=== PATIENT | male | born 1970 | race Caucasian/White ===

== ENCOUNTER → 2022-04-30 | Outpatient (CLI) | payer SELFPAY ==
[2022-04-30 12:46] LABS: Absolute Neutrophil Count 4.8 X10^3/uL (2.0-7.7); Basophil# 0.07 X10^3/uL; Eosinophil# 0.27 X10^3/uL; Eosinophils% 3.8 % (0-5); Hematocrit 38.2 % (40-54); Hemoglobin 13.1 g/dL (13.0-16.5); Lymphocyte % 20.9 % (19-41); Mean Corp Hgb Conc 34.3 g/dL (32-36); Mean Corpuscular Hgb 29.4 pg (27.0-32.0); Mean Corpuscular Volume 85.8 fL (80-94); Mean Platelet Vol. 9.1 fl (6.2-12.0); Monocyte# 0.45 X10^3/uL; Monocyte% 6.3 % (0-10); NRBC Flagged by Analyzer 0 % (0-5); Neutrophil # 4.83 X10^3/uL (2.7-7.7); Neutrophil % 67.3 % (47-70); Platelet Count 366 K/mm3 (150-450); RBC Distribution Width CV 12.9 % (11.6-14.6); RBC Distribution Width SD 39.8 fl (35.1-43.9); Red Blood Count 4.45 M/mm3 (4.6-6.2); White Blood Count 7.2 K/mm3 (4.4-11.0)
[2022-04-30 12:51] LABS: Anion Gap 3 (5-15); BUN 15 mg/dL (7-18); BUN/Creat Ratio 14.4 RATIO (10-20); Calcium,Total 9.2 mg/dL (8.5-10.1); Chloride 102 mmol/L (98-107); Creatinine, Serum 1.04 mg/dL (0.70-1.30); EST Glomerular Filtration Rate 81 mL/min (>60); Est Glom Filt Rate - Afr Amer 97 mL/min (>60); Glucose 83 mg/dL (74-106); Potassium 4.1 mmol/L (3.5-5.1); Sodium Level 138 mmol/L (136-145); T4 Free Direct 0.96 ng/dL (0.76-1.46); Thyroid Stim Hormone (TSH) 6.56 uIU/mL (0.358-3.74)
== END | disposition home or self-care (01) ==
PROVIDERS: PCP Family Medicine; Visit Provider Family Medicine
DX: R50.9 Fever, unspecified (principal); N17.9 Acute kidney failure, unspecified; R53.83 Other fatigue
CPT/HCPCS: 36415; 80048; 84439; 84443; 85025

== ENCOUNTER 2023-10-01 21:07 | Emergency (ER) | payer OTHER, SELFPAY ==
[2023-10-01 21:07] VITALS: BP 136/70; PULSE 87; RESP 16; TEMP 37.1; O2SAT 94
[2023-10-01 21:10] VITALS: BP 136/70; PULSE 93; RESP 16; TEMP 37.1; O2SAT 100
--- NOTE | 2023-10-01 21:24 | CT_ITS ---
STUDY: CT ABDOMEN AND PELVIS WITHOUT CONTRAST REASON FOR EXAM: Male, 52 years old. pain RADIATION DOSAGE (If Supplied By Facility): CTDIvol = ( 8.45 ) mGy, DLP = ( 681.05 ) mGycm TECHNIQUE: Transaxial images were obtained from the dome of the diaphragm to the symphysis pubis without oral contrast, and without intravenous contrast. Sagittal and coronal images were reconstructed. Individualized dose optimization techniques were used for this CT. COMPARISON: 10/20/2014 FINDINGS: Groundglass density left lower lobe consistent with subsegmental atelectasis or pneumonitis. The visualized portions of the heart are within normal limits. Elevated left hemidiaphragm. Normal liver. The gallbladder is contracted. Normal spleen. Normal pancreas. Normal bilateral adrenal glands. Normal right kidney. Stranding of the fat surrounding the left kidney without hydronephrosis suggestive of pyelonephritis. Normal visualized stomach. Normal small intestine. Large amount of stool throughout the colon suggestive of constipation. Large amount of stool within the rectum suggestive of fecal impaction. The appendix is visualized and appears normal. Normal abdominal aorta. Normal inferior vena cava. Small retroperitoneal lymph nodes, likely reactive. Normal urinary bladder. Bilateral hydroceles. Normal abdominal wall. 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 No anterolisthesis of L5 on S1 due to spondylolisthesis. CT/Abdomen/Pelvis without Cont IMPRESSION: 1. Suspect left pyelonephritis. 2. Suspect constipation with fecal impaction. 3. Bilateral hydroceles. 4. Left lower lobe subsegmental atelectasis or pneumonitis. Electronically Signed: Darrell Hernandez MD at 22:32 EDT ,
--- NOTE | 2023-10-01 21:27 | EX.ED.DYSGE1 ---
HPI History of Present Illness Chief Complaint: Fever Informant: family Narrative Narrative: Patient here with 2 brothers, developmental disability nonverbal. Reporting patient had a fever this morning. Slight cough today. Denies sick contacts. He says history of UTIs. They state he cannot urinate recently. He has been vomiting x 2 today. Reported he had twisted bowels x 2. Reported knee surgery 1 time another time self-limiting. They been using Advil however last time was 4 PM nearly 6 hours ago. He has no allergies. Prior similar symptoms: Yes PFSH PFSH Medical History (Updated 10/01/23 @ 23:[address] Javi Chaves DO) Developmental disability Constipation Right inguinal hernia Home Medications ?Medication ?Instructions ?Recorded ?Last Taken ?Type cefdinir 300 mg capsule 300 mg PO Q12H #14 caps 10/01/23 Unknown Rx ondansetron 4 mg disintegrating 4 mg PO Q8H PRN PRN Nausea #10 tabs 10/01/23 Unknown Rx tablet thyroid (pork) 60 mg tablet 60 mg PO DAILY 10/01/23 Unknown History ([place] Thyroid) Allergy/AdvReac Type Severity Reaction Status Date / Time No Known Allergies Allergy Verified 10/01/23 22:11 Family History Grandmother Asthma Grandfather Colon cancer Brother Diabetes Father Hypertension Sister Thyroid disorder lupusautoimmune disease Social History Smoking Status: Never smoker alcohol intake: never substance use type: does not use ROS ROS ED ROS Narrative Unable to answer due to his developmental delay. Per family fever and vomiting. Constitutional Constitutional ED: Reports fever(s) Gastrointestinal Gastrointestinal: Reports vomiting EXAM Physical Exam Const Vital Signs: 10/01/23 21:07 10/01/23 21:10 Temperature 98.8 F 98.8 F Temperature Source Temporal Temporal Pulse Rate 87 93 Respiratory Rate 16 16 Blood Pressure 136/70 H 136/70 H Blood Pressure Mean 92 92 Pulse Ox 94 100 Oxygen Delivery Method Room Air Room Air Positive well nourished and well developed Constitutional Narrative: Nonverbal, nontoxic, however patient up out of bed trying to leave the room with brothers helping stabilize the patient and calm him down. General Appearance ED: well developed and NAD HEENT Reports moist mucous membranes normocephalic and atraumatic Eyes General Eye ED: Yes normal appearance of both eyes Neck General: Negative for tenderness Chest Wall Chest: Negative for tenderness Resp normal respiratory effort and normal air movement Effort and Inspection: symmetric chest movement; Negative for respiratory distress Cardio regular rate, regular rhythm and no murmurs Peripheral Pulses: pulses 2+ throughout GI normal to inspection, nondistended, normoactive bowel sounds GI Narrative: No suprapubic distention, no guarding or rebound. Palpation: Negative for guarding or rebound tenderness present Extremity normal to inspection General Extremety ED: Negative for edema or tenderness General Extremity: Negative for edema Neuro Sensorium / Orientation: awake Skin no rashes or lesions noted and no wounds MDM MDM MDM Narrative Medical decision making narrative: Interventions / MDM: Differential diagnosis: UTI, pneumonia, Diagnosis considered but do not suspect: Volvulus however CT negative for this. My EKG interpretation: N/A Imaging independently reviewed and interpreted by myself: CT abdomen pelvis: Stranding around his left kidney concerning pyelonephritis no volvulus. Constipation noted. Chest x-ray: Bilateral patchy pneumonia also read by radiology. External documents reviewed: N/A Test considered but not ordered:N/A ED course: Patient afebrile on arrival he was given Advil nearly 6 hours ago. History UTIs history of reported twisted bowels. He was vomiting today. He is nontoxic. However with patient's baseline development disability unable to safely perform medical treatment. Discussed with the brothers will likely need sedation and they agree. Ketamine will be ordered to assist with stability. Will plan on labs straight catheter urine along with CT abdomen pelvis for further evaluation. Will be given fluids and Zofran. Patient was workup positive for UTI urine culture sent start Rocephin. Chest x-ray also noted patchy pneumonia. COVID is positive. He is not hypoxic. White count 12.4. His renal sufficiency creatinine 1.5 up from 1. He is given IV fluids in the ED. CT abdomen pelvis negative for volvulus notes stranding around the left kidney. He is covered for complicated UTI. Discussed with family in the room. Vitals are stable. They will take and finish antibiotics. Prescription for Zofran. Return precautions. All questions were answered. Re-evaluation: stable Disposition discussed with patient/family/significant other: Family Case discussed with consulting clinician: N/A This note was generated with [employer] dictation software. It may contain incorrect words, spelling, and punctuation that were not noted in checking the note before signing. Lab Data Attestation: I reviewed the patient's lab results. Labs: Laboratory Results - last 24 hr 10/01/23 10/01/23 21:50 22:05 WBC 12.4 H RBC 4.83 Hgb 13.7 Hct 40.4 MCV 83.6 MCH 28.4 MCHC 33.9 RDW Std Deviation 40.4 RDW Coeff of Monika 13.2 Plt Count 139 L MPV 9.3 Immature Gran % (Auto) 0.200 Neut % (Auto) 81.3 H Lymph % (Auto) 13.9 L [place] % (Auto) 3.9 Eos % (Auto) 0.5 Baso % (Auto) 0.2 Absolute Neuts (auto) 10.1 H Absolute Lymphs (auto) 1.73 Nucleated RBC % 0 Sodium 136 Potassium 3.6 Chloride 104 Carbon Dioxide 21.0 Anion Gap 11 BUN 23 H Creatinine 1.55 H Est GFR (MDRD) Af Amer 61 Est GFR (MDRD) Non-Af 51 L BUN/Creatinine Ratio 14.8 Glucose 114 H Calcium 8.8 Urine Color Yellow Urine Clarity Cloudy Urine pH 5.0 Ur Specific [place] 1.015 Urine Protein 100 H Urine Glucose (UA) Normal Urine Ketones 5 H Urine Occult Blood 50 H Urine Nitrite Positive H Urine Bilirubin Negative Urine Urobilinogen Normal Ur Leukocyte Esterase 500 H Urine RBC 5-10 SEEN Urine WBC 50-100 SEEN Ur Squamous Epith Cells 0-5 SEEN Amorphous Sediment 1+ URATE Urine Bacteria RARE Urine Mucus 0 SEEN Radiography Diagnostic Testing: Clinical Impression(s) from Imaging Studies Abdomen/Pelvis CT 10/01/23 21:24 IMPRESSION: 1. Suspect left pyelonephritis. 2. Suspect constipation with fecal impaction. 3. Bilateral hydroceles. 4. Left lower lobe subsegmental atelectasis or pneumonitis. Electronically Signed: Darrell Hernandez MD at 22:32 EDT , Chest X-Ray 10/01/23 22:04 IMPRESSION: Patchy bilateral pneumonia. Electronically Signed: Darrell Hernandez MD at 22:32 EDT , Discharge Plan Triage Chief Complaint: Fever ED Provider: Javi Chaves Dx/Rx/DC Orders Clinical Impression: Complicated urinary tract infection, Acute renal insufficiency, COVID-19, Developmental disability, Pneumonia due to 2019-nCoV Instructions: Coronavirus Disease 2019 (COVID-19): Overview, Urinary Tract Infections in Men, ED Pneumonia (Adult) Prescriptions: New ondansetron 4 mg tablet,disintegrating 4 mg PO Q8H PRN PRN (Reason: Nausea) Qty: 10 0RF cefdinir 300 mg capsule 300 mg PO Q12H Qty: 14 0RF No Action thyroid (pork) [[place] Thyroid] 60 mg tablet 60 mg PO DAILY Primary Care Provider: Олег Wen Referrals: Олег Wen, [Primary Care Provider] - 3-5 Days Activity Restrictions/Additional Instructions: CT scan no volvulus or obstruction. Some inflammation around the left kidney. Urine with infection. White count of 12.4. Creatinine 1.55. Status post IV fluids. Avoid Advil. Use Tylenol 1 g every 6 hours as needed for fevers. Take and finish antibiotics as prescribed. Zofran as needed for nausea and vomiting. COVID-19 positive today. Pneumonia seen on chest x-ray. He is not requiring oxygen. Follow-up with your doctor for recheck blood work. If symptoms worsen, return to the ED for reevaluation. Print Language: Guamanian Disposition Disposition: Home, Self Care
[2023-10-01] MEDS: Ketamine HCl 500 MG/5 ML Vial 283 MG IM (21:36)
[2023-10-01] MEDS: 0.9% Normal Saline (1000mL) 1,000 ML 150 ML IV (21:53)
[2023-10-01 21:59] LABS: Absolute Lymphocyte Count 1.73 X10^3/uL (0.83-4.51); Absolute Neutrophil Count 10.1 X10^3/uL (2.0-7.7); Basophil# 0.03 X10^3/uL; Basophil% 0.2 % (0-1); Eosinophil# 0.06 X10^3/uL; Eosinophils% 0.5 % (0-5); Hematocrit 40.4 % (40-54); Hemoglobin 13.7 g/dL (13.0-16.5); Lymphocyte # 1.73 X10^3/ul (0.83-4.51); Lymphocyte % 13.9 % (19-41); Mean Corp Hgb Conc 33.9 g/dL (32-36); Mean Corpuscular Hgb 28.4 pg (27.0-32.0); Mean Corpuscular Volume 83.6 fL (80-94); Mean Platelet Vol. 9.3 fl (6.2-12.0); Monocyte# 0.49 X10^3/uL; Monocyte% 3.9 % (0-10); NRBC Flagged by Analyzer 0 % (0-5); Neutrophil # 10.08 X10^3/uL (2.7-7.7); Neutrophil % 81.3 % (47-70); Platelet Count 139 K/mm3 (150-450); RBC Distribution Width CV 13.2 % (11.6-14.6); RBC Distribution Width SD 40.4 fl (35.1-43.9); Red Blood Count 4.83 M/mm3 (4.6-6.2); White Blood Count 12.4 K/mm3 (4.4-11.0)
--- NOTE | 2023-10-01 22:04 | RAD_ITS ---
STUDY: X-RAY CHEST REASON FOR EXAM: Male, 52 years old. cough TECHNIQUE: Single AP portable view of the chest. COMPARISON: None. FINDINGS: Patchy alveolar opacities in the upper right lung and the lower left lung consistent with pneumonia. Slightly elevated left hemidiaphragm. Normal size heart. Normal mediastinum and yusra. Normal visualized pulmonary arteries. Normal visualized aortic arch and descending thoracic aorta. Normal visualized thoracic spine. Normal visualized ribs, clavicles, and shoulders. There is no demonstrated abnormality of the visualized soft tissue structures of the upper abdomen. RAD/Chest 1 View (Portable) IMPRESSION: Patchy bilateral pneumonia. Electronically Signed: Darrell Hernandez MD at 22:32 EDT ,
[2023-10-01 22:10] LABS: Mucous, Urine 0 SEEN /hpf (<or=2+)
[2023-10-01 22:11] LABS: Color, Urine Yellow (Yellow); Glucose, Dipstick Normal (Normal); Ketone-Dipstick 5 mg/dl (Negative); Leukocyte Esterase-Dipstick 500 /ul (Negative); Nitrite-Dipstick Positive (Negative); Occult Blood-Urine 50 /ul (Negative); Protein-Dipstick 100 mg/dl (Negative); Specific Gravity, Urine 1.015 (1.002-1.030); Urine Bilirubin Dipstick Negative (Negative); Urine Clarity Cloudy (Clear); Urine Urobilinogen Normal (Normal)
[2023-10-01 22:14] LABS: Anion Gap 11 (5-15); BUN 23 mg/dL (7-18); BUN/Creat Ratio 14.8 RATIO (10-20); Calcium,Total 8.8 mg/dL (8.5-10.1); Chloride 104 mmol/L (98-107); Creatinine, Serum 1.55 mg/dL (0.70-1.30); EST Glomerular Filtration Rate 51 mL/min (>60); Est Glom Filt Rate - Afr Amer 61 mL/min (>60); Glucose 114 mg/dL (74-106); Potassium 3.6 mmol/L (3.5-5.1); Sodium Level 136 mmol/L (136-145)
[2023-10-01] MEDS: Ondansetron 4 MG/2 ML Vial IV (22:14)
[2023-10-01 22:20] LABS: Amorphous Sediment 1+ URATE; Bacteria RARE /hpf (None Seen); Red Blood Cells-Urine 5-10 SEEN /hpf (0-5); Squamous Epithelial Cells - UA 0-5 SEEN /hpf (0-5); White Blood Cells 50-100 SEEN /hpf (0-5)
[2023-10-01] MEDS: Ceftriaxone 1 GM/50 ML BAG IV (23:02)
[2023-10-01 23:38] VITALS: BP 147/71; PULSE 90; RESP 18; RESP 19; TEMP 36.8; O2SAT 97
== END 2023-10-01 23:41 | disposition home or self-care (01) ==
PROVIDERS: Emergency Provider Emergency Medicine; PCP Family Medicine; Visit Provider Emergency Medicine
DX: U07.1 COVID-19 (principal); N39.0 Urinary tract infection, site not specified; R11.10 Vomiting, unspecified; K59.00 Constipation, unspecified; N28.9 Disorder of kidney and ureter, unspecified; J12.82 Pneumonia due to coronavirus disease 2019; Z79.899 Other long term (current) drug therapy
CPT/HCPCS: 71045; 74176; 80048; 81001; 85025; 87077; 87086; 87088; 87186; 87631; 96361; 96365; 96372; 96375; 99284; J7030; P9612; J2405

== ENCOUNTER 2023-10-02 23:41 | Emergency (ER) | payer OTHER, SELFPAY ==
--- NOTE | 2023-10-02 00:01 | RAD_ITS ---
EXAM: XR ABDOMEN, 2 VIEWS AND XR CHEST, 1 VIEW CLINICAL INDICATION: constipation TECHNIQUE: Frontal view of the chest, frontal view of the abdomen/pelvis and upright or decubitus view of the abdomen. COMPARISON: Single view chest 10/01/2023 FINDINGS: CHEST: LUNGS AND PLEURAL SPACES: Patchy bibasilar air space disease. No pneumothorax. No effusion. HEART: Unremarkable. Cardiac silhouette not enlarged. MEDIASTINUM: Central airways and mediastinal contour are unremarkable. ABDOMEN: INTRAPERITONEAL SPACE: No free air. GASTROINTESTINAL TRACT: Moderate amount of stool in the colon. Non-obstructive. No bowel or stomach distention. ORGANS: Unremarkable as visualized. No organomegaly. No abnormal calcifications. TUBES, LINES AND DEVICES: None. BONES/JOINTS: No acute findings. SOFT TISSUES: No acute findings. RAD/Acute Abd Inc Chest (Portable) IMPRESSION: 1. Patchy bibasilar air space disease. Findings may indicate pneumonia. 2. Moderate amount of stool in the colon. Electronically Signed: Herson Monroe MD at 0:51 EDT ,
[2023-10-02 23:41] VITALS: BP 107/54; PULSE 86; RESP 14; TEMP 36.8; O2SAT 93; BMI 11.6
[2023-10-02 23:50] VITALS: BP 107/54; PULSE 83; RESP 16; TEMP 36.8; O2SAT 92
[2023-10-02 23:57] VITALS: RESP 20; O2SAT 93
[2023-10-03] VITALS (7 sets, daily range): BP systolic 91–97; BP diastolic 54–63; PULSE 67–72; RESP 16–22; TEMP 36–36.5; O2SAT 85–98
[2023-10-03 00:24] LABS: Hematocrit 35.1 % (40-54); Hemoglobin 11.6 g/dL (13.0-16.5); Mean Corpuscular Volume 84.6 fL (80-94); Mean Platelet Vol. 10.1 fl (6.2-12.0); POSITIVE COUNT YES; POSITIVE MORPHOLOGY YES; Platelet Count 140 K/mm3 (150-450); RBC Distribution Width CV 13.5 % (11.6-14.6); RBC Distribution Width SD 41.7 fl (35.1-43.9); Red Blood Count 4.15 M/mm3 (4.6-6.2); White Blood Count 7.3 K/mm3 (4.4-11.0)
[2023-10-03 00:28] LABS: Differential Indicated MANUAL DIFF
[2023-10-03 00:31] LABS: Lactic Acid 1.1 mmol/L (0.4-1.9)
[2023-10-03 00:35] LABS: ALB/GLOB Ratio 0.7 RATIO (0.9-2.4); AST(SGOT) 32 U/L (15-37); Alanine Aminotransfer ALT/SGPT 27 U/L (16-61); Albumin, Serum 2.7 g/dL (3.2-5.0); Alkaline Phosphatase 90 U/L (45-117); Anion Gap 8 (5-15); BUN 37 mg/dL (7-18); Calcium,Total 8.4 mg/dL (8.5-10.1); Chloride 107 mmol/L (98-107); Creatinine, Serum 2.06 mg/dL (0.70-1.30); EST Glomerular Filtration Rate 36 mL/min (>60); Est Glom Filt Rate - Afr Amer 44 mL/min (>60); Estimated Creatinine Clearance 21.72 ml/min; Glucose 137 mg/dL (74-106); Potassium 3.6 mmol/L (3.5-5.1); Protein, Total 6.7 g/dL (6.4-8.2); Sodium Level 142 mmol/L (136-145)
[2023-10-03] MEDS: 0.9% Normal Saline (1000mL) 1,000 ML 50 ML IV (00:41)
--- NOTE | 2023-10-03 01:03 | CT_ITS ---
EXAM: CT ABDOMEN AND PELVIS WITHOUT INTRAVENOUS CONTRAST CLINICAL INDICATION: abd pain TECHNIQUE: Helically acquired images were obtained of the abdomen and pelvis without intravenous contrast. This CT exam was performed using one or more of the following dose reduction techniques: automated exposure control, adjustment of the mA and/or kV according to patient size, and/or use of iterative reconstruction technique. CONTRAST: Oral Gastrografin RADIATION DOSE: CTDIvol = 10.09 mGy, DLP = 600.27 mGy-cm COMPARISON: CT abdomen and pelvis 10/01/2023 FINDINGS: LOWER THORAX: Bibasilar airspace disease. No cardiomegaly. No significant pericardial effusion. ABDOMEN: LIVER: Unremarkable. Homogeneous. GALLBLADDER AND BILE DUCTS: Unremarkable. No calcified gallstones. No gallbladder distention or wall edema. No intra- or extrahepatic biliary ductal dilation. PANCREAS: Unremarkable. No focal cystic mass. SPLEEN: Unremarkable. Normal size without focal cystic or solid mass. ADRENALS: Unremarkable. No nodules. KIDNEYS AND URETERS: Prominence of the left kidney with some adjacent stranding. Normal renal size and position. STOMACH AND BOWEL: Large amount stool in the colon, including the rectum which is dilated up to 8.6 cm. No focal inflammatory change. PELVIS: APPENDIX: No evidence of acute appendicitis. BLADDER: Unremarkable. REPRODUCTIVE: Bilateral hydroceles and scrotum. ABDOMEN and PELVIS: INTRAPERITONEAL SPACE: Unremarkable. No ascites or other fluid collection. No free air. BONES/JOINTS: Unremarkable. No suspicious lytic or blastic abnormality. SOFT TISSUES: Unremarkable. No discrete abdominal or pelvic wall hernia. VASCULATURE: Unremarkable. Abdominal aorta is non-dilated. LYMPH NODES: Unremarkable. No enlarged lymph nodes. CT/Abdomen/Pel W ORAL Cont Only IMPRESSION: 1. Bibasilar airspace disease. This may indicate atelectasis or infection. 2. Prominence of the left kidney with some adjacent stranding. Findings may indicate hilar nephritis as previously discussed. 3. Large amount stool in the colon, including the rectum which is dilated up to 8.6 cm. Overall, no significant interval change compared with the CT from 2 days ago. Electronically Signed: Herson Monroe MD at 3:35 EDT ,
[2023-10-03 01:33] LABS: Atypical Lymphocyte RARE %; Differential Comment SCANNED; Lymphocyte 11 % (19-41); Monocyte 6 % (0-10); Neutrophil-Band 36 % (0-5); Neutrophil-Segmented 47 % (47-70); Total Cells Counted 100 (MANUAL DIFF)
[2023-10-03 01:35] LABS: Absolute Neutrophil Count 6.1 X10^3/uL (2.0-7.7)
[2023-10-03 01:41] LABS: Blood Gas Specimen Type VEN; O2 Delivery Device Not entered; SITE Not entered; VBG BASE EXCESS 4 mmol/L (-1.0-3.5); VBG Bicarbonate 28 mmol/L (22-26); VBG PO2 61 mmHg (25-40); VBG SO2 92 % (50-70); VBG TCO2 29 mmol/L (23-33); VBG pCO2 41.2 mmHg (41-51); VBG pH 7.44 (7.32-7.42)
--- NOTE | 2023-10-03 03:46 | EX.ED.DYSGE1 ---
HPI History of Present Illness Chief Complaint: Nausea/Vomiting Informant: patient and family Narrative Narrative: Patient is a 52-year-old male with past medical history of developmental disability who was seen yesterday secondary to fever and found to have COVID-pneumonia as well as UTI. Family states that he also has a history of intestinal volvulus and that today he has been having bouts of vomiting after taking his medications and they have concern that this may have developed. They deny any fever since yesterday but have concern that as he is having bouts of nausea and vomiting that he is not getting his medication that he needs and therefore he was brought back in for evaluation [facility] Medical History (Updated 10/03/23 @ 06:[address] Grupo Thakur DO) Developmental disability Constipation Right inguinal hernia Home Medications ?Medication ?Instructions ?Recorded ?Last Taken ?Type cefdinir 300 mg capsule 300 mg PO Q12H #14 caps 10/01/23 Unknown Rx ondansetron 4 mg disintegrating 4 mg PO Q8H PRN PRN Nausea #10 tabs 10/01/23 Unknown Rx tablet thyroid (pork) 60 mg tablet 60 mg PO DAILY 10/01/23 Unknown History ([place] Thyroid) polyethylene glycol 3350 17 17 g PO BID #510 grams 10/03/23 Unknown Rx gram/dose oral powder (Miralax) Allergy/AdvReac Type Severity Reaction Status Date / Time No Known Allergies Allergy Verified 10/02/23 23:49 Family History Grandmother Asthma Grandfather Colon cancer Brother Diabetes Father Hypertension Sister Thyroid disorder lupusautoimmune disease Social History Smoking Status: Never smoker alcohol intake: never substance use type: does not use ROS ROS ED Constitutional Constitutional ED: Reports chills and fever(s) ENT ENT ED: Denies sore throat Cardiovascular Cardiovascular: Denies chest pain Respiratory/Chest Respiratory/Chest: Reports cough and dyspnea Gastrointestinal Gastrointestinal: Reports nausea and vomiting; Denies abdominal pain or diarrhea Genitourinary Genitourinary ED: Reports dysuria Musculoskeletal Musculoskeletal: Reports myalgias Integumentary Denies rash Neurologic Neurologic: Denies headache(s) Hematologic/Lymphatic Hematologic/Lymphatic: Denies easy bleeding or easy bruising EXAM Physical Exam Const Vital Signs: 10/03/23 03:00 10/03/23 04:00 10/03/23 04:00 Temperature 97.2 F L 96.8 F L Temperature Source Temporal Temporal Pulse Rate 71 70 72 Respiratory Rate 22 H 16 16 Blood Pressure 95/55 L 97/54 L 97/54 L Blood Pressure Mean 68 68 68 Pulse Ox 95 94 96 Oxygen Delivery Method Room Air Room Air Room Air 10/03/23 04:04 Temperature 96.8 F L Temperature Source Pulse Rate 70 Respiratory Rate 16 Blood Pressure 97/54 L Blood Pressure Mean 68 Pulse Ox 96 Oxygen Delivery Method Positive well nourished and well developed General Appearance ED: well developed; Negative for pallor HEENT Reports dry mucous membranes HEENT Narrative: Mucous membranes are dry and tacky without lip swelling oral lesions airway edema or compromise Mouth ED: Yes dry mucous membranes Mouth: dry mucous membranes Eyes PERRL and EOMs intact bilaterally General Eye ED: Negative for scleral icterus Neck supple Neck Narrative: No nuchal rigidity or meningeal signs Chest Wall palpation of chest normal Resp normal respiratory effort Resp Narrative: Breath sounds are diminished throughout with faint rhonchi in the bilateral bases Otherwise no nasal flaring retractions tachypnea or accessory muscle use Cardio regular rate and regular rhythm Rate: other Other Details: Heart is regular rate and rhythm without murmurs rubs or gallops Radial and carotid pulses are equal and symmetric GI GI Narrative: Abdomen is soft with slight distention and hyperactive bowel sounds Mild diffuse pain on palpation is noted however no voluntary guarding or rigidity or peritoneal signs No pulsatile mass or fluid wave Auscultation: hyperactive bowel sounds Palpation: soft Back/Spine no CVA tenderness Extremity normal to inspection Neuro CN's II-XII intact bilaterally Neuro Narrative: Patient is at his baseline mental status with no focal neurologic deficit No nuchal rigidity or meningeal signs Sensorium / Orientation: alert Psych Psych Narrative: Patient has a flat affect Skin no rashes or lesions noted Skin Narrative: Skin turgor is increased General Skin Exam: Negative for jaundice or pallor MDM MDM MDM Narrative Medical decision making narrative: Patient arrived to the ER afebrile in no acute distress. He was seen yesterday and had chest x-ray and CT scan of his abdomen. Family states that he does have a past medical history of volvulus and that he has been throwing up today after taking his antibiotic and there was concern that this was related to his previous history of volvulus. Differential diagnosis is potential small bowel obstruction/volvulus versus viral stomach infection such as [place] virus or rotavirus versus adverse medication effect. He has findings consistent with dehydration and there is concern for acute kidney injury versus electrolyte abnormality. Repeat labs were obtained as well as CT scan with oral contrast. Labs show improvement of his white blood cell count and no lactic acidosis. He does have bandemia but he has a known urinary tract infection as well as COVID induced pneumonia. Kidney function has increased by 0.5 from his value yesterday but this is not a significant enough elevation to classify as acute kidney injury and he will be treated with 2 L of IV fluid. CT scan with oral contrast was obtained secondary to concern there is reported vomiting was from volvulus that had developed during the day. CT scan did not show any signs of obstruction/volvulus. Moreover the patient was able to drink the entire amount of oral contrast and had no further bouts of vomiting. At this time he is known COVID-pneumonia as well as a known urinary tract infection. He has had mild elevation to his kidney function from 1.55 to creatinine of 2.06 but this elevation of 0.5 does not classify as acute kidney injury and he has been rehydrated with 2 L of fluid. He was given a dose of IV Rocephin as family reports he has not held down his antibiotic today. He does have bandemia but his white count is now normal his lactic acid is normal he does not have neutrophil shift and he is not hypotensive or febrile and therefore I do not feel there is need for admission for IV antibiotics at this time as he has not had sufficient time to fail outpatient therapy and at this time is not triggering findings consistent with sepsis. Therefore patient will be discharged home once again and family instructed to continue oral hydration and use antibiotics as directed. They agreed to have the patient return if he worsens or is unable to keep any food or fluid down at home History & Record Review Discussion w/independent historian: Patient and Family Lab Data Attestation: I reviewed the patient's lab results. Labs: Laboratory Results - last 24 hr 10/02/23 23:55 WBC 7.3 RBC 4.15 L Hgb 11.6 L Hct 35.1 L MCV 84.6 MCH 28.0 MCHC 33.0 RDW Std Deviation 41.7 RDW Coeff of Monika 13.5 Plt Count 140 L MPV 10.1 Neut % (Auto) Not Reportable Absolute Neuts (auto) 6.1 Absolute Lymphs (auto) 0.80 L Total Counted 100 Neutrophils % (Manual) 47 Band Neutrophils % 36 H Lymphocytes % (Manual) 11 L Monocytes % (Manual) 6 Differential Comment SCANNED Atypical Lymphocytes RARE Sodium 142 Potassium 3.6 Chloride 107 Carbon Dioxide 27.0 Anion Gap 8 BUN 37 H Creatinine 2.06 H Estim Creat Clear Calc 21.72 Est GFR (MDRD) Af Amer 44 L Est GFR (MDRD) Non-Af 36 L BUN/Creatinine Ratio 18.0 Glucose 137 H Lactic Acid 1.1 Calcium 8.4 L Total Bilirubin 0.80 AST 32 ALT 27 Alkaline Phosphatase 90 Total Protein 6.7 Albumin 2.7 L Globulin 4.0 Albumin/Globulin Ratio 0.7 L ABG Data ABG results: ABG 10/03/23 01:37 Specimen Type CAROLINE Sample Site Not entered O2 % 2.0 VBG pH 7.44 H VBG pO2 61 H VBG HCO3 28 H VBG Total CO2 29 VBG O2 Sat (Calc) 92 H VBG Base Excess 4 H POC Mix VBG pCO2 Pt Tmp 41.2 O2 Delivery Device Not entered Radiography Diagnostic Testing: Clinical Impression(s) from Imaging Studies Acute Abdomen Series 10/02/23 00:01 IMPRESSION: 1. Patchy bibasilar air space disease. Findings may indicate pneumonia. 2. Moderate amount of stool in the colon. Electronically Signed: Herson Monroe MD at 0:51 EDT , Abdomen CT 10/03/23 01:03 IMPRESSION: 1. Bibasilar airspace disease. This may indicate atelectasis or infection. 2. Prominence of the left kidney with some adjacent stranding. Findings may indicate hilar nephritis as previously discussed. 3. Large amount stool in the colon, including the rectum which is dilated up to 8.6 cm. Overall, no significant interval change compared with the CT from 2 days ago. Electronically Signed: Herson Monroe MD at 3:35 EDT , Acute abdominal series with 1 view chest as interpreted by the emergency medicine physician reveals a nonspecific nonobstructive bowel gas pattern with moderate amount of stool in the colon consistent with constipation. 1 view chest x-ray component reveals haziness in the bilateral lower lobes consistent/concerning for pneumonia Discharge Plan Triage Chief Complaint: Nausea/Vomiting ED Provider: Grupo Thakur Dx/Rx/DC Orders Clinical Impression: Constipation, Nausea & vomiting, Dehydration, Pneumonia, COVID-19, Developmental disability Instructions: ED Constipation (Adult), ED Vomiting (Adult) Prescriptions: New polyethylene glycol 3350 [Miralax] 17 gram/dose powder 17 g PO BID Qty: 510 2RF No Action thyroid (pork) [[place] Thyroid] 60 mg tablet 60 mg PO DAILY ondansetron 4 mg tablet,disintegrating 4 mg PO Q8H PRN PRN (Reason: Nausea) Qty: 10 0RF cefdinir 300 mg capsule 300 mg PO Q12H Qty: 14 0RF Primary Care Provider: Олег Wen Referrals: Олег Wen DO [Primary Care Provider] - Activity Restrictions/Additional Instructions: The CT scan today did not show any signs of abdominal blockage or volvulus. It showed changes consistent with severe constipation. Use the magnesium citrate today to help stimulate bowel movement and then use the prescribed MiraLAX twice a day to keep bowel movements regular. Finish out the prescribed antibiotics secondary to the pneumonia and urinary tract infection and return to the ER should you have any further concerns Print Language: Emirati Disposition Disposition: Home, Self Care Discharge Date/Time: 10/03/23 04:22
[2023-10-03] MEDS: Ceftriaxone 1 GM/50 ML BAG IV (04:00)
[2023-10-03] MEDS: Magnesium Citrate 300 ML PO (04:00)
== END 2023-10-03 04:22 | disposition home or self-care (01) ==
PROVIDERS: Emergency Provider Emergency Medicine; PCP Family Medicine; Visit Provider Emergency Medicine
DX: K59.00 Constipation, unspecified (principal); J18.9 Pneumonia, unspecified organism; E86.0 Dehydration; D72.825 Bandemia; Z79.899 Other long term (current) drug therapy; U07.1 COVID-19; J12.82 Pneumonia due to coronavirus disease 2019; R11.2 Nausea with vomiting, unspecified; N39.0 Urinary tract infection, site not specified
CPT/HCPCS: 74022; 74176; 80053; 82803; 83605; 85025; 87040; 94760; 99284; J7030; J7050; A4216

== ENCOUNTER 2023-10-05 04:58 | Inpatient (IN) | payer OTHER, SELFPAY ==
[2023-10-05] VITALS (19 sets, daily range): BP systolic 90–157; BP diastolic 51–95; PULSE 60–94; RESP 14–25; TEMP 36.1–37.8; O2SAT 93–97; BMI 26.4; BMI 20.7
--- NOTE | 2023-10-05 05:09 | RAD_ITS ---
EXAM: XR CHEST, 1 VIEW CLINICAL INDICATION: recent pneumonia TECHNIQUE: Frontal view of the chest. COMPARISON: . FINDINGS: LUNGS AND PLEURAL SPACES: Increased patchy consolidation right lung and left lower lobe. No pneumothorax. No effusion. HEART: Unremarkable. Cardiac silhouette not enlarged. MEDIASTINUM: Central airways and mediastinal contour are unremarkable. BONES/JOINTS: Unremarkable. No acute fracture. SOFT TISSUES: Unremarkable. RAD/Chest 1 View (Portable) IMPRESSION: Increased patchy consolidation right lung and left lower lobe. Findings may be due to pneumonia and/or edema. Electronically Signed: Sj Bergman MD at 6:15 EDT ,
--- NOTE | 2023-10-05 05:13 | ED.VIS.GI ---
HPI HPI - GI History of Present Illness Chief Complaint: Shortness of Breath Detail of Chief Complaint: Nausea and vomiting with the appearance of blood. Informant: family Nausea/Vomiting/Emesis GI Symptom: Positive for Nausea and Vomiting Onset: Today Quality: Positive for Coffee ground and Hematemesis Severity: Mild Diarrhea/Melena/Hematochezia GI Symptom: Negative for Diarrhea Associated Symptoms Associated Symptoms: Negative for Dysuria, Frequency, Hematuria or Urgency Narrative Narrative: 52-year-old male who is unable to communicate has severe developmental delay. Has been seen twice in the last several days in the emergency department had a workup concerning for possible UTI and pneumonia was placed on antibiotics. He is brought in by family patient is unable to give any history himself. They state is really cut down very little the antibiotics. He has had 2 bowel movements in the last 24 hours. They have been dark. He started having nausea and vomiting and had blood and small clots in his emesis. He has never had a GI bleed before. He is on no blood thinners. He has had no recent admissions. Prior similar symptoms: No Recent Illness/Hospitalization: No PFSH PFSH Medical History (Updated 10/05/23 @ 06:[address] David Correa MD) Developmental disability Constipation Right inguinal hernia Home Medications ?Medication ?Instructions ?Recorded ?Last Taken ?Type cefdinir 300 mg capsule 300 mg PO Q12H #14 caps 10/01/23 Unknown Rx ondansetron 4 mg disintegrating 4 mg PO Q8H PRN PRN Nausea #10 tabs 10/01/23 Unknown Rx tablet thyroid (pork) 60 mg tablet 60 mg PO DAILY 10/01/23 Unknown History ([place] Thyroid) polyethylene glycol 3350 17 17 g PO BID #510 grams 10/03/23 Unknown Rx gram/dose oral powder (Miralax) Allergy/AdvReac Type Severity Reaction Status Date / Time No Known Allergies Allergy Verified 10/05/23 05:07 Family History Grandmother Asthma Grandfather Colon cancer Brother Diabetes Father Hypertension Sister Thyroid disorder lupusautoimmune disease Social History Smoking Status: Never smoker alcohol intake: never substance use type: does not use ROS ROS ED ROS Narrative Nausea and vomiting. Reported hematemesis. Very limited due to the patient is unable to communicate the review of systems is taken from his family. Review of Systems ROS Unobtainable: due to encephalopathy Constitutional Constitutional ED: Denies chills or fever(s) ENT ENT ED: Denies ear pain Cardiovascular Cardiovascular: Denies chest pain EXAM Physical Exam Narrative Exam Narrative: 52-year-old male. Vital signs show low-grade temperature of 100.1. Pulse ox 96% room air no hypoxia. H EENT exam mild dry mucous membranes. Pupils round reactive light. No signs of trauma to his head. Lungs clear to auscultation bilaterally. Heart regular rhythm rate about 90 no murmur. Chest wall and ribs nontender. Abdomen does not appear to be tender. Not distended. Soft. No obvious obstruction. Moving all 4 extremities. Nontender no edema. Neurologically he is awake. His eyes are open. He does follows very limited commands he did open his mouth and stick out his tongue when asked him to. He is unable to give any history. Const Vital Signs: 10/05/23 04:59 10/05/23 05:42 10/05/23 05:43 Temperature 100.1 F H Temperature Source Temporal Pulse Rate 94 Respiratory Rate 20 H Respiratory Effort Normal Blood Pressure 157/95 H Blood Pressure Mean 115 Pulse Ox 96 Oxygen Delivery Method Room Air Nasal Cannula Oxygen Flow Rate (L/min) 6 10/05/23 05:48 10/05/23 06:24 10/05/23 06:28 Temperature 98.7 F 98.7 F Temperature Source Temporal Pulse Rate 84 84 Respiratory Rate 20 H 22 H Respiratory Effort Blood Pressure 155/76 H 155/76 H Blood Pressure Mean 102 102 Pulse Ox 93 93 Oxygen Delivery Method Nasal Cannula Nasal Cannula Oxygen Flow Rate (L/min) 3 3 Positive well nourished and well developed; Negative for obese, cachectic, contractures or unkempt General Appearance ED: well developed and NAD; Negative for unkempt, cachectic, contractures or pallor Nutritional Appearance: Negative for cachectic or obese HEENT Reports dry mucous membranes; Denies moist mucous membranes normocephalic and atraumatic; Negative for trauma or tenderness Mouth ED: Yes dry mucous membranes Mouth: dry mucous membranes Eyes PERRL and EOMs intact bilaterally General Eye ED: Negative for pale conjunctiva or scleral icterus Neck no lymphadenopathy, supple and no JVD General: Negative for tenderness Carotids: Negative for other Lymph Lymphatic: Negative for other Resp normal respiratory effort and clear to auscultation bilaterally Effort and Inspection: Negative for respiratory distress Auscultation: Negative for rales, rhonchi or wheezes Cardio regular rate, regular rhythm, S1 normal heart sound, S2 normal heart sound and no murmurs Rate: Negative for bradycardia or tachycardic Rhythm: Negative for abnormal rhythm GI non-tender, non-distended and no masses Inspection: Negative for abdominal distention Auscultation: normoactive bowel sounds Palpation: soft; Negative for tender, guarding, rigid or rebound tenderness present Extremity full ROM General Extremety ED: Negative for edema or tenderness General Extremity: Negative for edema Neuro CN's II-XII intact bilaterally and moves all extremities Sensorium / Orientation: alert and oriented to person Motor Exam: strength 5/5 throughout Psych Appearance: Negative for unkempt Mood & Affect: Negative for depressed, anxious or tearful Skin no wounds General Skin Exam: Negative for jaundice or pallor Lesions: no lesions Rashes: no rashes MDM MDM MDM Narrative Medical decision making narrative: 52-year-old male has severe developmental delay. Is unable to communicate. Brought in due to possible hematemesis. No history of GI bleed. No blood thinners. Recently seen here and treated for possible pneumonia and UTI. Patient may have an upper GI bleed. He is very difficult to assess because he gets agitated. Limited cooperation. Extremely limited communication. He will be given IM ketamine send nurses can start an IV we get him undressed and start the appropriate evaluation. Screening labs are being obtained. Along the chest x-ray and he will be typed and screened. He has had 2 CAT scans last 2 days. They did not show a bowel obstruction. He has had bowel movements. I do not think he needs his abdomen reimaged at this time. Patient is COVID-positive diagnosis in the last several days on his most recent ER visits. Patient was started on IV Rocephin and Zithromax for his pneumonitis in case he has a secondary bacterial pneumonia on top of his COVID. He has been treated with IV fluids. I will speak to the hospitalist about admission due to his hypoxia, pneumonia, COVID and possible upper GI bleed. His blood count is actually improved from the other day. He is more anemic than he has been in the past. He also has dehydration and renal insufficiency. Repeat exam at 6:40 AM no significant change. I discussed all his test results and current diagnoses with his family. They are comfortable with him being admitted. I spoke to the hospitalist he will be admitted to the progressive care unit. Lab Data Attestation: I reviewed the patient's lab results. Lab results narrative: CBC is a white count 7. H&H 12.8 and 40. Platelets 171. PT and INR and PTT are normal at 13, 1 and 26. Electrolytes show gap of 13. BUN 38 creatinine 1.6 Glucose 107. Liver enzymes unremarkable. Labs are slightly improved from his most recent visit. Labs: Laboratory Results - last 24 hr 10/05/23 05:30 WBC 7.0 RBC 4.63 Hgb 12.8 L Hct 40.0 MCV 86.4 MCH 27.6 MCHC 32.0 RDW Std Deviation 43.1 RDW Coeff of Monika 13.6 Plt Count 171 MPV 9.7 Immature Gran % (Auto) 1.000 H Neut % (Auto) 74.4 H Lymph % (Auto) 20.2 [place] % (Auto) 3.1 Eos % (Auto) 0.7 Baso % (Auto) 0.6 Absolute Neuts (auto) 5.2 Absolute Lymphs (auto) 1.42 Nucleated RBC % 0 PT 13.7 INR 1.1 APTT 26.7 Sodium 142 Potassium 4.0 Chloride 101 Carbon Dioxide 28.0 Anion Gap 13 BUN 38 H Creatinine 1.61 H Estim Creat Clear Calc 54.89 Est GFR (MDRD) Af Amer 59 L Est GFR (MDRD) Non-Af 48 L BUN/Creatinine Ratio 23.6 H Glucose 107 H Calcium 8.6 Total Bilirubin 0.60 AST 23 ALT 24 Alkaline Phosphatase 112 Total Protein 6.9 Albumin 2.7 L Globulin 4.2 Albumin/Globulin Ratio 0.6 L Blood Type O POSITIVE Antibody Screen NEGATIVE Radiography Chest X-Ray - ED: 1 View, Read by ED Physician, Read by Radiologist, Normal, Heart, Bony Structures, Right Infiltrate and Left Infiltrate Diagnostic Testing: Clinical Impression(s) from Imaging Studies Chest X-Ray 10/05/23 05:09 IMPRESSION: Increased patchy consolidation right lung and left lower lobe. Findings may be due to pneumonia and/or edema. Electronically Signed: Sj Bergman MD at 6:15 EDT , Chest x-ray, portable shows bilateral patchy infiltrates right greater than left. Significant worse from the prior recent chest x-ray. Could be consistent with COVID pneumonitis versus COVID plus a secondary bacterial pneumonia. Critical Care Time Critical Care Time: Yes Critical care time (excluding procedures): 30-74 minutes, Including time spent:, Discussing w/Patient &/or Family/Cost And Risk Analysis Manager, Discussing w/Consultants, Arranging Admission or Transfer, Performing Direct Patient Care at Bedside and - (35 minutes.) Discharge Plan Dx/Rx/DC Orders Clinical Impression: COVID, Hypoxia, Vomiting, Acute upper gastrointestinal bleeding, History of developmental delay, Urinary tract infection, Pneumonia, Acute renal insufficiency, Anemia Disposition Disposition: Acute Care Hospital [facility]
[2023-10-05] MEDS: Ketamine HCl 500 MG/5 ML Vial 212 MG IM (05:16)
[2023-10-05] MEDS: Ondansetron 4 MG/2 ML Vial IV (05:28)
[2023-10-05] MEDS: 0.9% Normal Saline (1000mL) 1,000 ML 1000 ML IV (05:28)
[2023-10-05 05:47] LABS: Absolute Lymphocyte Count 1.42 X10^3/uL (0.83-4.51); Absolute Neutrophil Count 5.2 X10^3/uL (2.0-7.7); Basophil# 0.04 X10^3/uL; Basophil% 0.6 % (0-1); Eosinophil# 0.05 X10^3/uL; Eosinophils% 0.7 % (0-5); Hemoglobin 12.8 g/dL (13.0-16.5); Lymphocyte # 1.42 X10^3/ul (0.83-4.51); Lymphocyte % 20.2 % (19-41); Mean Corpuscular Hgb 27.6 pg (27.0-32.0); Mean Corpuscular Volume 86.4 fL (80-94); Mean Platelet Vol. 9.7 fl (6.2-12.0); Monocyte# 0.22 X10^3/uL; Monocyte% 3.1 % (0-10); NRBC Flagged by Analyzer 0 % (0-5); Neutrophil # 5.23 X10^3/uL (2.7-7.7); Neutrophil % 74.4 % (47-70); Platelet Count 171 K/mm3 (150-450); RBC Distribution Width CV 13.6 % (11.6-14.6); RBC Distribution Width SD 43.1 fl (35.1-43.9); Red Blood Count 4.63 M/mm3 (4.6-6.2)
[2023-10-05 05:58] LABS: International Normalized Ratio 1.1; Partial Thromboplast Time 26.7 Seconds (24.1-36.2); Prothrombin Time (Protime)PT. 13.7 SECONDS (11.7-14.9)
[2023-10-05 06:07] LABS: ALB/GLOB Ratio 0.6 RATIO (0.9-2.4); AST(SGOT) 23 U/L (15-37); Alanine Aminotransfer ALT/SGPT 24 U/L (16-61); Albumin, Serum 2.7 g/dL (3.2-5.0); Alkaline Phosphatase 112 U/L (45-117); Anion Gap 13 (5-15); BUN 38 mg/dL (7-18); BUN/Creat Ratio 23.6 RATIO (10-20); Calcium,Total 8.6 mg/dL (8.5-10.1); Chloride 101 mmol/L (98-107); Creatinine, Serum 1.61 mg/dL (0.70-1.30); EST Glomerular Filtration Rate 48 mL/min (>60); Est Glom Filt Rate - Afr Amer 59 mL/min (>60); Estimated Creatinine Clearance 54.89 ml/min; Globulin 4.2 g/dL (2.2-4.2); Glucose 107 mg/dL (74-106); Protein, Total 6.9 g/dL (6.4-8.2); Sodium Level 142 mmol/L (136-145)
--- NOTE | 2023-10-05 06:32 | HP.PCM.HOS_ITS ---
[facility] - General General Date of Admission: 10/05/23 Date of Service: 10/05/23 Chief Complaint: SOB, Nausea, Vomiting and Blood in Emesis plus Diarrhea. HPI Narrative SIMON SHELTON, is a 52 M with a past medical history of severe mental retardation with developmental delay, hypothyroidism, history of right inguinal hernia, history of intestinal volvulus, recently diagnosed UTI; treated with cefdinir and recently diagnosed COVID-19 who presents to [facility] ER with his family noting shortness of breath, nausea, vomiting with blood in emesis and diarrhea. Mr. Shelton is not a reliable historian so information was gathered from chart, medical staff and computer. According to the records the patient has been in the emergency room here twice in the past few days once on October 01, 2023 for workup concerning for possible UTI with CT scan of the abdomen and pelvis showing possible Left pyelonephritis, constipation with fecal impaction, bilateral hydroceles and Left lower lobe atelectasis versus pneumonia with PCR positive for COVID-19 with leukocytosis of 12.4 present on that admission with patient's family instructed to bring him back to the ER in case he worsened. Then he returned to the ER on October 03, 2023 due to intractable nausea and vomiting causing dehydration with LORRI with his family concerned because he was not able to reliably take his oral medications and because he has a history of intestinal volvulus. Unfortunately, since then he has developed diarrhea with 2 large volume bowel movements that have been dark in color worrisome for bleeding. He also was noted to have nausea and vomiting with small blood clots in his emesis worrisome to the ER provider for possible Zita-Tuttle tear. He has not been on any blood thinning medications and he has not been fully admitted to the hospital recently. They also reported a fever of approximately 100 ?F confirmed in the ER and he had to receive a dose of ketamine in order to have an IV placed. His brothers reported that they checked him with a Pulse-oximeter prior to bring him in which revealed 55% saturation on RA. In the ER he was noted to have radiographic evidence of multifocal pneumonia; suspected to be bacterial superinfection after recent COVID-19 infection with clinical evidence of respiratory insufficiency complicated by suspected bloody diarrhea with some blood evident in his vomitus worrisome for upper GI bleed with possible Zita- Tuttle tear complicated by recent antibiotic treatment for UTI with CT evidence of Left pyelonephritis and pneumonia with concern for C. difficile colitis compounded by laboratory evidence of volume depletion with elevated serum creatinine of 1.61 mg/dL with a BUN of 26 mg/dL and hypoalbuminemia of 2.7 g/dL present on admission worrisome for possible protein calorie malnutrition and he was then admitted to the ICU for ongoing care for stay that is expected to be greater than 2 midnights. [facility] Medical History (Updated 10/05/23 @ 07:[address] Polo Coyle DO) Multifocal pneumonia Developmental disability Constipation Right inguinal hernia Home Medications ?Medication ?Instructions ?Recorded ?Last Taken ?Type cefdinir 300 mg capsule 300 mg PO Q12H #14 caps 10/01/23 Unknown Rx ondansetron 4 mg disintegrating 4 mg PO Q8H PRN PRN Nausea #10 tabs 10/01/23 Unknown Rx tablet thyroid (pork) 60 mg tablet 60 mg PO DAILY 10/01/23 Unknown History ([place] Thyroid) polyethylene glycol 3350 17 17 g PO BID #510 grams 10/03/23 Unknown Rx gram/dose oral powder (Miralax) Allergy/AdvReac Type Severity Reaction Status Date / Time No Known Allergies Allergy Verified 10/05/23 05:07 Family History Grandmother Asthma Grandfather Colon cancer Brother Diabetes Father Hypertension Sister Thyroid disorder lupusautoimmune disease Social History Smoking Status: Never smoker alcohol intake: never substance use type: does not use ROS ROS Narrative This patient has severe MRDD and therefore cannot complete a full review of systems. Review of Systems ROS Unobtainable: due to mental condition Vital Signs Vital Signs Vital Signs: 10/05/23 04:59 10/05/23 05:42 10/05/23 05:43 Temperature 100.1 F H Temperature Source Temporal Pulse Rate 94 Respiratory Rate 20 H Respiratory Effort Normal Blood Pressure 157/95 H Blood Pressure Mean 115 Pulse Ox 96 Oxygen Delivery Method Room Air Nasal Cannula Oxygen Flow Rate (L/min) 6 10/05/23 05:48 10/05/23 06:24 10/05/23 06:28 Temperature 98.7 F 98.7 F Temperature Source Temporal Pulse Rate 84 84 Respiratory Rate 20 H 22 H Respiratory Effort Blood Pressure 155/76 H 155/76 H Blood Pressure Mean 102 102 Pulse Ox 93 93 Oxygen Delivery Method Nasal Cannula Nasal Cannula Oxygen Flow Rate (L/min) 3 3 Weight Weight: 179 lb 7.3 oz Body Mass Index (BMI) 26.4 Physical Exam Const alert and no apparent distress Constitutional Narrative: Patient has severe MRDD. General Appearance: uncooperative Orientation / Consciousness: confused and disoriented HEENT normocephalic, head/scalp atraumatic and hearing grossly normal bilaterally HEENT Narrative: Mucous membranes dry. Eyes PERRL and EOMs intact bilaterally Neck no lymphadenopathy and supple Resp Resp Narrative: Diminished breath sounds throughout. Cardio regular rate and regular rhythm GI normal to inspection, nondistended, normoactive bowel sounds, soft to palpation, non-tender and non-distended Extremity normal to inspection, full ROM and no clubbing, cyanosis or edema Skin Skin Narrative: Patient has no evidence of abscess, jaundice or rash. Neuro CN's II-XII intact bilaterally, moves all extremities and no focal motor deficits Neuro Narrative: Patient has severe MRDD and limited ability to follow commands. Sensorium / Orientation: awake and alert Psych Mood & Affect: anxious Results Medical Records Data Attestation: I reviewed the patient's medical records Lab / Micro Data Attestation: I reviewed the patient's lab results. 10/05/23 05:30 10/05/23 05:30 Labs: Laboratory Results - last 24 hr 10/05/23 05:30: WBC 7.0, RBC 4.63, Hgb 12.8 L, Hct 40.0, MCV 86.4, MCH 27.6, MCHC 32.0, RDW Std Deviation 43.1, RDW Coeff of Monika 13.6, Plt Count 171, MPV 9.7, Immature Gran % (Auto) 1.000 H, Neut % (Auto) 74.4 H, Lymph % (Auto) 20.2, [place] % (Auto) 3.1, Eos % (Auto) 0.7, Baso % (Auto) 0.6, Absolute Neuts (auto) 5.2, Absolute Lymphs (auto) 1.42, Nucleated RBC % 0, PT 13.7, INR 1.1, APTT 26.7, Sodium 142, Potassium 4.0, Chloride 101, Carbon Dioxide 28.0, Anion Gap 13, BUN 38 H, Creatinine 1.61 H, Estim Creat Clear Calc 54.89, Est GFR (MDRD) Af Amer 59 L, Est GFR (MDRD) Non-Af 48 L, BUN/Creatinine Ratio 23.6 H, Glucose 107 H, Calcium 8.6, Total Bilirubin 0.60, AST 23, ALT 24, Alkaline Phosphatase 112, Total Protein 6.9, Albumin 2.7 L, Globulin 4.2, Albumin/Globulin Ratio 0.6 L, Blood Type O POSITIVE, Antibody Screen NEGATIVE Imaging Radiology Impression Chest X-Ray 10/05/23 05:09 IMPRESSION: Increased patchy consolidation right lung and left lower lobe. Findings may be due to pneumonia and/or edema. Electronically Signed: Sj Bergman MD at 6:15 EDT , Assessment & Plan Assessment/Plan (1) Acute upper gastrointestinal bleeding: (2) Nausea & vomiting: QUALIFIERS: Vomiting type: unspecified Qualified Code(s): R11.2 - Nausea with vomiting, unspecified (3) Multifocal pneumonia: (4) COVID: (5) Pyelonephritis: (6) Diarrhea: QUALIFIERS: Diarrhea type: presumed infectious Qualified Code(s): R19.7 - Diarrhea, unspecified (7) Developmental disability: PLAN: Plan 1. Hematemesis and dark diarrheal stools concerning for upper GI bleed with frequent nausea and vomiting also raising suspicion for possible Zita-Tuttle tear - Admit to ICU. Keep strict n.p.o. and start IV Protonix drip after bolus. Blood has already been typed and screened we will transfuse for hemoglobin less than 7 g/dL. Check CT of abdomen pelvis with contrast to see if bleeding site can be ascertained. Check stool studies and place on enteric precautions plus start empiric IV Flagyl until C. difficile has been ruled out. Finally, we will consult gastroenterology to see this patient on rounds for recommendations regarding EGD this admission without appreciated in advance. 2. Multifocal pneumonia; after recent COVID-19 infection with suspected bacterial superinfection with a possible component of aspiration with clinical evidence of respiratory insufficiency complicating #1 - Place on droplet precautions and start broad-spectrum antibiotics with IV vancomycin, IV Flagyl and IV Zosyn and await culture and sensitivity data to narrow antibiotic spectrum. Check urine antigens for Legionella and Streptococcus pneumonia. We will not give dexamethasone at this time due to concern for GI bleeding. Check CT scan of the chest to more clearly define pneumonia. Finally, we will consult server administrator to see this patient this admission for further recommendations due to his medical complexity with help appreciated in advance. 3. Recently diagnosed UTI with CT evidence of Left pyelonephritis; treated with oral cefdinir compounding #1 & #2 - Recheck urinalysis with reflex to culture and check CT scan of the abdomen and pelvis to evaluate for persistent evidence of Left pyelonephritis to see if this is still a factor at this time. 4. Volume depletion with suspected early dehydration due to #1 - #3 - Volume resuscitate and recheck BMP in a.m. to ensure improvement. 5. Hypoalbuminemia of 2.7 g/dL present on admission worrisome for possible underlying protein calorie malnutrition - Check prealbumin to confirm suspicion. 6. Severe mental retardation with developmental delay adding to the pathology of #1 - #4 - This will likely complicate care and potentially hamper recovery. Otherwise, continue supportive care with as needed Vistaril for breakthrough agitation. 7. Hypothyroidism - Continue supplementation with IV Synthroid while patient is NPO. 8. History of Right inguinal hernia repair and volvulus - Noted. 9. DVT prophylaxis - SCD's only with possible GI bleed outlined in #1. Total time: Approximately 75 minutes. Charges/Coding Visit Charges Inpatient E&M: 94267 Init Hosp L3
--- NOTE | 2023-10-05 06:43 | NURSING ---
PCU EDGAR COVID PNEUMONIA, UTI, DEV DELAY, UGI BLEED, HYPOXIA
[2023-10-05] MEDS: Pantoprazole Sodium 40 MG in 0.9% Normal Saline (100mL MB+) 100 ML 330 MG IV (06:45)
[2023-10-05] MEDS: Ceftriaxone 1 GM/50 ML BAG IV (07:09)
[2023-10-05] MEDS: Azithromycin 500 MG in Dextrose 5%-Water (250mL Bag) 250 ML 250 MG IV (08:46)
--- NOTE | 2023-10-05 08:49 | RAD_ITS ---
INDICATION: fecolith EXAMINATION/TECHNIQUE: X-RAY - XR Abdomen W/ Decub and/or Erect Views COMPARISON: Prior study dated: 10/05/2023 FINDINGS: BOWEL GAS PATTERN: Nonspecific gaseous bowel loops and colon unchanged prior exam. FREE AIR: Not assessed on a single supine view. ORGANOMEGALY: Not seen. CALCIFICATIONS: No abnormal calcifications observed. LOWER CHEST: Not included on this exam. BONES AND SOFT TISSUES: No acute pathology. RAD/Abd Decub and/or Erect(Portabl IMPRESSION: Nonspecific gas pattern. Electronically Signed: Miguel Jade MD at 9:51 EDT ,
[2023-10-05] MEDS: 0.9% Normal Saline (1000mL) 1,000 ML 125 ML IV ×2 (09:33→17:24)
[2023-10-05] MEDS: Vancomycin HCl 1,500 MG in 0.9% Normal Saline (500mL Bag) 500 ML 250 MG IV (09:43)
[2023-10-05] MEDS: Pantoprazole Sodium 40 MG in 0.9% Normal Saline (100mL MB+) 100 ML 300 MG IVPB (09:43)
[2023-10-05] MEDS: Pantoprazole Sodium 80 MG in 0.9% Normal Saline (100mL Bag) 80 ML 10 MG IVPB ×2 (10:02→19:52)
[2023-10-05 10:07] LABS: Prealbumin 13.4 mg/dL (20.0-40.0)
--- NOTE | 2023-10-05 10:44 | PHA.PHARE_ITS ---
Consult Antibiotic Management Pharmacy has been consulted to manage selected antibiotic: Vancomycin Type of Intervention Type of Consult: New start Suspected Infection Suspected Infection: Pneumonia Labs Labs: Sodium 142 mmol/L (136-145) 10/05/23 05:30 Potassium 4.0 mmol/L (3.5-5.1) 10/05/23 05:30 Chloride 101 mmol/L (98-107) 10/05/23 05:30 Carbon Dioxide 28.0 mmol/L (21.0-32.0) 10/05/23 05:30 Anion Gap 13 (5-15) 10/05/23 05:30 BUN 38 mg/dL (7-18) H 10/05/23 05:30 Creatinine 1.61 mg/dL (0.70-1.30) H 10/05/23 05:30 Est GFR (MDRD) Af Amer 59 mL/min (>60) L 10/05/23 05:30 Est GFR (MDRD) Non-Af 48 mL/min (>60) L 10/05/23 05:30 BUN/Creatinine Ratio 23.6 RATIO (10-20) H 10/05/23 05:30 Glucose 107 mg/dL (74-106) H 10/05/23 05:30 Dosing Weight Weight used for dosin.6 kg Estimated Creatinine Clearance Estimated Creatinine Clearance: 55 ML/MIN Goal Trough Goal Trough: 15-20 mcg/mL Pharmacy Plan for Drug Dosing Pharmacy Plan for Drug Dosing: Give initial dose of 1500mg IV x1 as ordered by physician (physician decreased the initial 2000mg dose as dosed by pharmacy). WIll then continue with 750mg IV q12h as dosed by pharmacy per [facility] dosing protocol. Check a trough before the 4th total dose. Pharmacy Service will continue to monitor and adjust dosing as required. Follow-Up Labs Follow-Up Labs: Trough: Vancomycin Date/Time Labs Ordered Labs to be done on [date and time ordered]: 10/06/23 21:30
[2023-10-05] MEDS: Piperacil/Tazobactam 3.375 GM in 0.9% Normal Saline (50mL MB+) 50 ML IV ×2 (10:58→22:17)
[2023-10-05 13:19] LABS: Bacteria 0 SEEN /hpf (None Seen); Mucous, Urine 0 SEEN /hpf (<or=2+); Red Blood Cells-Urine 0 SEEN /hpf (0-5); Squamous Epithelial Cells - UA 0 SEEN /hpf (0-5)
[2023-10-05 13:23] LABS: Color, Urine Yellow (Yellow); Glucose, Dipstick Normal (Normal); Ketone-Dipstick Negative (Negative); Leukocyte Esterase-Dipstick 25 /ul (Negative); Nitrite-Dipstick Negative (Negative); Occult Blood-Urine Negative /ul (Negative); Protein-Dipstick Negative (Negative); Urine Bilirubin Dipstick Negative (Negative); Urine Clarity Clear (Clear); Urine Urobilinogen Normal (Normal)
[2023-10-05 13:31] LABS: White Blood Cells 0-5 SEEN /hpf (0-5)
--- NOTE | 2023-10-05 16:04 | PCM.PN.HOSP ---
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) Pneumonia, unspecified organism (10/05/23) Gastrointestinal hemorrhage, unspecified (10/05/23) Tubulo-interstitial nephritis, not specified as acute or chronic (10/05/23) Nausea with vomiting, unspecified (10/05/23) Diarrhea, unspecified (10/05/23) COVID-19 (10/05/23) Objective Data Objective Data Vital Signs: Vital Signs Temp Pulse Resp BP Pulse Ox O2 Del Method O2 Flow Rate 98.8 F 68 16 106/59 L 96 Nasal Cannula 2 10/05/23 14:00 10/05/23 15:00 10/05/23 15:00 10/05/23 15:00 10/05/23 15:00 10/05/23 15:00 10/05/23 15:00 Oxygen Flow Rate (L/min) 2 Oxygen Delivery Method Nasal Cannula Weight: 177 lb 11.081 oz Body Mass Index (BMI) 20.7 Intake & Output: Intake and Output for Last 24 Hours 10/03/23 10/04/23 10/05/23 23:59 23:59 23:59 Intake Total 2095 / 2095 Output Total 500 / 500 Balance 1595 / 1595 Lab / Micro Data 10/05/23 05:30 10/05/23 05:30 Labs: Laboratory Results - last 24 hr 10/05/23 05:30: WBC 7.0, RBC 4.63, Hgb 12.8 L, Hct 40.0, MCV 86.4, MCH 27.6, MCHC 32.0, RDW Std Deviation 43.1, RDW Coeff of Monika 13.6, Plt Count 171, MPV 9.7, Immature Gran % (Auto) 1.000 H, Neut % (Auto) 74.4 H, Lymph % (Auto) 20.2, [place] % (Auto) 3.1, Eos % (Auto) 0.7, Baso % (Auto) 0.6, Absolute Neuts (auto) 5.2, Absolute Lymphs (auto) 1.42, Nucleated RBC % 0, PT 13.7, INR 1.1, APTT 26.7, Sodium 142, Potassium 4.0, Chloride 101, Carbon Dioxide 28.0, Anion Gap 13, BUN 38 H, Creatinine 1.61 H, Estim Creat Clear Calc 54.89, Est GFR (MDRD) Af Amer 59 L, Est GFR (MDRD) Non-Af 48 L, BUN/Creatinine Ratio 23.6 H, Glucose 107 H, Calcium 8.6, Total Bilirubin 0.60, AST 23, ALT 24, Alkaline Phosphatase 112, Total Protein 6.9, Albumin 2.7 L, Globulin 4.2, Albumin/Globulin Ratio 0.6 L, Prealbumin 13.4 L, Blood Type O POSITIVE, Antibody Screen NEGATIVE 10/05/23 13:15: Urine Color Yellow, Urine Clarity Clear, Urine pH 8.0, Ur Specific [place] 1.010, Urine Protein Negative, Urine Glucose (UA) Normal, Urine Ketones Negative, Urine Occult Blood Negative, Urine Nitrite Negative, Urine Bilirubin Negative, Urine Urobilinogen Normal, Ur Leukocyte Esterase 25 H, Urine RBC 0 SEEN, Urine WBC 0-5 SEEN, Ur Squamous Epith Cells 0 SEEN, Urine Bacteria 0 SEEN, Urine Mucus 0 SEEN Micro: Microbiology 10/05/23 13:15 Urine, Clean Catch Legionella Antigen - Final 10/05/23 13:15 Urine, Clean Catch Streptococcus pneumoniae Antigen (M - Final 10/05/23 09:30 Mucosa - Nose Respiratory Panel (PCR) - Final Adenovirus Radiography Diagnostic Testing: Radiology Impression Chest X-Ray 10/05/23 05:09 IMPRESSION: Increased patchy consolidation right lung and left lower lobe. Findings may be due to pneumonia and/or edema. Electronically Signed: Sj Bergman MD at 6:15 EDT , Abdomen X-Ray 10/05/23 08:49 IMPRESSION: Nonspecific gas pattern. Electronically Signed: Miguel Jade MD at 9:51 EDT , Physical Exam Narrative Seen and examined Vitals reviewed. Baseline BP is about 120-140 but variable. Currently, definitely low in low 100s. HR 68/m, not tachycardic. Pt has low cognitive ability or low higher mental function but ADL is mostly independent though urine incontinent. Limited speech ability with few words. Has chronic constipation. No abd pain General: Awake, alett but chronic cognitive deficit/LOW higher mental function/execution. BMI 20.8 kg/m2 HEENT: PERRLA. EOMI Oral: Oral mucosa dry. No Gingival or Mucosal Lesions/ Ulcerations Neck: Supple, No JVD, Negative Carotid Bruits Chest wall/Lungs: Air entry diminished in bilateral lung bases. Bilateral COARSE crepitations more on right base Cardiovascular: Sinus rhythm Normal S1, Normal S2, No M/G/R Abdomen: Bowel Sounds sluggish, Soft, Non Tender, Non-Distended : Chronic incontinence. Dysuria can't be ascertained but no acute change in LUTS. . No renal angle tenderness. No suprapubic tenderness. Extremities: No edema, Capillary Refill Less than 3 Seconds Skin: No rashes, No breakdown Musculoskeletal: ROM slightly limited. No acute bony or joint tenderness Neurological: DTR 2+/4.Low speech output with few words. Limited exam due to MRDD. Psych/Mental Status: Flat affect. Assessment & Plan Assessment/Plan (1) Acute upper gastrointestinal bleeding: (2) Nausea & vomiting: (3) Multifocal pneumonia: (4) COVID: (5) Pyelonephritis: (6) Diarrhea: (7) Developmental disability: PLAN: Plan 1. Acute upper GI Bleed - Admit to ICU. Started on IV Protonix drip after bolus. Blood has already been typed and screened we will transfuse for hemoglobin less than 7 g/dL. CT abdpmen is cancelled as he recently had CT abd on 10/02 which colon with feces and rectal dilation about 8.6 cm Check stool studies and place on enteric precautions plus start empiric IV Flagyl until C. difficile has been ruled out. GI consulted and discussed with Dr. Gonzalez. Patient family agreed with EGD but refused Colonoscopy. 10/04: HH doesn't show much decrease than baseline 13.5. Current HH 12.8/40. Had 2-3 episodes of hematemesis with vomiting. NPO. The patient is self pay, Charli therfore doesn't want ICU stay but BP profile is similiar since morning aobut low 100s but not tachycardia. IVF RL 1 lire ordered, the status changed to PCU. Stool studies are pending. 2. Multifocal B/L pneumonia; due to recent COVID-19 infection and Adenovirus with suspected bacterial superinfection with a possible component of aspiration - Place on droplet precautions. He was started on broad-spectrum antibiotics with IV vancomycin, Flagyl and Zosyn but Zosyn D/Derrick bez urine cx showing ESBL E coli 50 k-80 K therefore zosyn changed to Meropenem. Urine Ag are negative. Resp panel positive of Adenovirus 3. Recently diagnosed UTI with CT evidence of Left pyelonephritis; treated with oral cefdinir - Urine culture as mentioned above. U/A shows LE 25, WBC 0-5, Nitrite negative. Rest as mentioned above. 4. Suspected LORRI due to hypovolemia -Cr was 1.55 on 09/30 and then 2.0 on 10/01 and today 1.61. Volume resuscitate and recheck BMP in a.m. to ensure improvement. 5. Severe intellectual and cognitive and developmental delay - This will likely complicate care and potentially hamper recovery. Otherwise, continue supportive care with as needed Vistaril for breakthrough agitation. 7. Hypothyroidism - Continue supplementation with IV Synthroid while patient is NPO. 8. History of Right inguinal hernia repair and volvulus - Noted. 9. DVT prophylaxis - SCD's only with possible GI bleed outlined in #1. Time spent in disucssion with 2 botheres regarding multiple diagnoses as metntioned above, GI Bleed in particula,its pathophysiology and management and other acitve Pneumonia and ESBL E coli is 40 minutes. His brothers stated that they are worried about high hospital bill and ICU stay. Downgraded to PCU. Microbiology Past 72 Hours 10/05/23 13:15 Urine, Clean Catch Legionella Antigen - Final 10/05/23 13:15 Urine, Clean Catch Streptococcus pneumoniae Antigen (M - Final 10/05/23 09:30 Mucosa - Nose Respiratory Panel (PCR) - Final Adenovirus Laboratory Results 10/05/23 05:30: WBC 7.0, RBC 4.63, Hgb 12.8 L, Hct 40.0, MCV 86.4, MCH 27.6, MCHC 32.0, RDW Std Deviation 43.1, RDW Coeff of Monika 13.6, Plt Count 171, MPV 9.7, Immature Gran % (Auto) 1.000 H, Neut % (Auto) 74.4 H, Lymph % (Auto) 20.2, [place] % (Auto) 3.1, Eos % (Auto) 0.7, Baso % (Auto) 0.6, Absolute Neuts (auto) 5.2, Absolute Lymphs (auto) 1.42, Nucleated RBC % 0, PT 13.7, INR 1.1, APTT 26.7, Sodium 142, Potassium 4.0, Chloride 101, Carbon Dioxide 28.0, Anion Gap 13, BUN 38 H, Creatinine 1.61 H, Estim Creat Clear Calc 54.89, Est GFR (MDRD) Af Amer 59 L, Est GFR (MDRD) Non-Af 48 L, BUN/Creatinine Ratio 23.6 H, Glucose 107 H, Calcium 8.6, Total Bilirubin 0.60, AST 23, ALT 24, Alkaline Phosphatase 112, Total Protein 6.9, Albumin 2.7 L, Globulin 4.2, Albumin/Globulin Ratio 0.6 L, Prealbumin 13.4 L, Blood Type O POSITIVE, Antibody Screen NEGATIVE 10/05/23 13:15: Urine Color Yellow, Urine Clarity Clear, Urine pH 8.0, Ur Specific [place] 1.010, Urine Protein Negative, Urine Glucose (UA) Normal, Urine Ketones Negative, Urine Occult Blood Negative, Urine Nitrite Negative, Urine Bilirubin Negative, Urine Urobilinogen Normal, Ur Leukocyte Esterase 25 H, Urine RBC 0 SEEN, Urine WBC 0-5 SEEN, Ur Squamous Epith Cells 0 SEEN, Urine Bacteria 0 SEEN, Urine Mucus 0 SEEN Charges/Coding Visit Charges Inpatient E&M: 54399 Subs Hosp L3
[2023-10-05] MEDS: Lactated Ringers 1,000 ML 999 ML IV (16:25)
--- NOTE | 2023-10-05 20:50 | EX.PCM.CON.G ---
HPI Consult Data Date of Consult: 10/05/23 HPI Narrative Reason for Consultation: GI bleed HPI Narrative: SIMON SHELTON, is a 52 M who presented to the emergency room with intractable nausea, vomiting. He has a past medical history of severe mental retardation with developmental delay. He presented to [facility] ER with his family noting shortness of breath, nausea, vomiting with blood in emesis and diarrhea. Mr. Shelton is not a reliable historian so information was gathered from chart. I was asked to see because of several episodes of hematemesis. He also developed diarrhea with 2 large volume bowel movements that have been dark in color worrisome for bleeding. It was suspected to be an upper GI as the cause of his possible lower GI bleeding. He also was noted to have nausea and vomiting with small blood clots in his emesis worrisome to the ER provider for possible Zita-Tuttle tear. CT scan of the abdomen and pelvis displayed evidence of Left pyelonephritis and pneumonia with concern for C. difficile colitis. He has been NPO and has not had anymore diarrhea. [facility] Medical History (Updated 10/05/23 @ 07:[address] Polo Coyle DO) Multifocal pneumonia Developmental disability Constipation Right inguinal hernia Home Medications ?Medication ?Instructions ?Recorded ?Last Taken ?Type cefdinir 300 mg capsule 300 mg PO Q12H #14 caps 10/01/23 Unknown Rx ondansetron 4 mg disintegrating 4 mg PO Q8H PRN PRN Nausea #10 tabs 10/01/23 Unknown Rx tablet thyroid (pork) 60 mg tablet 60 mg PO DAILY 10/01/23 Unknown History ([place] Thyroid) polyethylene glycol 3350 17 17 g PO BID #510 grams 10/03/23 Unknown Rx gram/dose oral powder (Miralax) Allergy/AdvReac Type Severity Reaction Status Date / Time No Known Allergies Allergy Verified 10/05/23 05:07 Family History Grandmother Asthma Grandfather Colon cancer Brother Diabetes Father Hypertension Sister Thyroid disorder lupusautoimmune disease Social History Smoking Status: Never smoker alcohol intake: never substance use type: does not use ROS ROS Narrative This patient has severe MRDD and therefore cannot complete a full review of systems. Review of Systems ROS Unobtainable: due to mental condition Physical Exam Const alert and no apparent distress Constitutional Narrative: Patient has severe MRDD. General Appearance: uncooperative Orientation / Consciousness: confused and disoriented HEENT normocephalic, head/scalp atraumatic and hearing grossly normal bilaterally HEENT Narrative: Mucous membranes dry. Eyes PERRL and EOMs intact bilaterally Neck no lymphadenopathy and supple Resp Resp Narrative: Diminished breath sounds throughout. Cardio regular rate and regular rhythm GI normal to inspection, nondistended, normoactive bowel sounds, soft to palpation, non-tender and non-distended Extremity normal to inspection, full ROM and no clubbing, cyanosis or edema Skin Skin Narrative: Patient has no evidence of abscess, jaundice or rash. Neuro CN's II-XII intact bilaterally, moves all extremities and no focal motor deficits Neuro Narrative: Patient has severe MRDD and limited ability to follow commands. Sensorium / Orientation: awake and alert Psych Mood & Affect: anxious Lab / Micro Data 10/05/23 05:30 10/05/23 05:30 Labs: Laboratory Results - last 24 hr 10/05/23 05:30: WBC 7.0, RBC 4.63, Hgb 12.8 L, Hct 40.0, MCV 86.4, MCH 27.6, MCHC 32.0, RDW Std Deviation 43.1, RDW Coeff of Monika 13.6, Plt Count 171, MPV 9.7, Immature Gran % (Auto) 1.000 H, Neut % (Auto) 74.4 H, Lymph % (Auto) 20.2, [place] % (Auto) 3.1, Eos % (Auto) 0.7, Baso % (Auto) 0.6, Absolute Neuts (auto) 5.2, Absolute Lymphs (auto) 1.42, Nucleated RBC % 0, PT 13.7, INR 1.1, APTT 26.7, Sodium 142, Potassium 4.0, Chloride 101, Carbon Dioxide 28.0, Anion Gap 13, BUN 38 H, Creatinine 1.61 H, Estim Creat Clear Calc 54.89, Est GFR (MDRD) Af Amer 59 L, Est GFR (MDRD) Non-Af 48 L, BUN/Creatinine Ratio 23.6 H, Glucose 107 H, Calcium 8.6, Total Bilirubin 0.60, AST 23, ALT 24, Alkaline Phosphatase 112, Total Protein 6.9, Albumin 2.7 L, Globulin 4.2, Albumin/Globulin Ratio 0.6 L, Prealbumin 13.4 L, Blood Type O POSITIVE, Antibody Screen NEGATIVE 10/05/23 13:15: Urine Color Yellow, Urine Clarity Clear, Urine pH 8.0, Ur Specific [place] 1.010, Urine Protein Negative, Urine Glucose (UA) Normal, Urine Ketones Negative, Urine Occult Blood Negative, Urine Nitrite Negative, Urine Bilirubin Negative, Urine Urobilinogen Normal, Ur Leukocyte Esterase 25 H, Urine RBC 0 SEEN, Urine WBC 0-5 SEEN, Ur Squamous Epith Cells 0 SEEN, Urine Bacteria 0 SEEN, Urine Mucus 0 SEEN Micro: Microbiology 10/05/23 13:15 Urine, Clean Catch Legionella Antigen - Final 10/05/23 13:15 Urine, Clean Catch Streptococcus pneumoniae Antigen (M - Final 10/05/23 09:30 Mucosa - Nose Respiratory Panel (PCR) - Final Adenovirus Imaging Radiology Impression Chest X-Ray 10/05/23 05:09 IMPRESSION: Increased patchy consolidation right lung and left lower lobe. Findings may be due to pneumonia and/or edema. Electronically Signed: Sj Bergman MD at 6:15 EDT , Abdomen X-Ray 10/05/23 08:49 IMPRESSION: Nonspecific gas pattern. Electronically Signed: Miguel Jade MD at 9:51 EDT , Assessment & Plan Assessment/Plan (1) Acute upper gastrointestinal bleeding: (2) Nausea & vomiting: QUALIFIERS: Vomiting type: unspecified Qualified Code(s): R11.2 - Nausea with vomiting, unspecified (3) Multifocal pneumonia: (4) COVID: (5) Pyelonephritis: (6) Diarrhea: QUALIFIERS: Diarrhea type: presumed infectious Qualified Code(s): R19.7 - Diarrhea, unspecified (7) Developmental disability: PLAN: Plan 52 year old gentleman with past medical developmental delay. DD: Hematemesis and dark diarrheal stools concerning for upper GI bleed with frequent nausea and vomiting also raising suspicion for possible Zita-Tuttle tear, erosive esophagitis, peptic ulcer disease, Deilafoy lesion, and angiodysplasia.- Keep strict n.p.o. and continue IV Protonix drip after bolus. Patient will undergo an upper endoscopy tomorrow. Agree with checking stool studies and place on enteric precautions plus start empiric IV Flagyl until C. difficile has been ruled out. ty with help appreciated in advance. Charges/Coding Visit Charges Inpatient E&M: 79003 Init Hosp L3
[2023-10-05] MEDS: Vancomycin HCl 750 MG in 0.9% Normal Saline (250mL Bag) 250 ML 250 MG IV (21:19)
[2023-10-06 03:33] LABS: Absolute Lymphocyte Count 1.31 X10^3/uL (0.83-4.51); Absolute Neutrophil Count 5.5 X10^3/uL (2.0-7.7); Basophil# 0.03 X10^3/uL; Basophil% 0.4 % (0-1); Eosinophil# 0.18 X10^3/uL; Eosinophils% 2.4 % (0-5); Hematocrit 30.4 % (40-54); Hemoglobin 9.6 g/dL (13.0-16.5); Lymphocyte # 1.31 X10^3/ul (0.83-4.51); Lymphocyte % 17.6 % (19-41); Mean Corp Hgb Conc 31.6 g/dL (32-36); Mean Corpuscular Hgb 27.8 pg (27.0-32.0); Mean Corpuscular Volume 88.1 fL (80-94); Mean Platelet Vol. 9.8 fl (6.2-12.0); Monocyte# 0.36 X10^3/uL; Monocyte% 4.8 % (0-10); NRBC Flagged by Analyzer 0 % (0-5); Neutrophil # 5.48 X10^3/uL (2.7-7.7); Neutrophil % 73.5 % (47-70); Platelet Count 141 K/mm3 (150-450); RBC Distribution Width CV 13.6 % (11.6-14.6); RBC Distribution Width SD 43.8 fl (35.1-43.9); Red Blood Count 3.45 M/mm3 (4.6-6.2); White Blood Count 7.5 K/mm3 (4.4-11.0)
[2023-10-06 04:16] LABS: ALB/GLOB Ratio 0.6 RATIO (0.9-2.4); AST(SGOT) 20 U/L (15-37); Alanine Aminotransfer ALT/SGPT 18 U/L (16-61); Albumin, Serum 1.9 g/dL (3.2-5.0); Alkaline Phosphatase 87 U/L (45-117); Anion Gap 7 (5-15); BUN 25 mg/dL (7-18); BUN/Creat Ratio 22.9 RATIO (10-20); Calcium,Total 7.5 mg/dL (8.5-10.1); Chloride 109 mmol/L (98-107); Creatinine, Serum 1.09 mg/dL (0.70-1.30); EST Glomerular Filtration Rate 76 mL/min (>60); Est Glom Filt Rate - Afr Amer 92 mL/min (>60); Estimated Creatinine Clearance 92.43 ml/min; Globulin 3.2 g/dL (2.2-4.2); Glucose 88 mg/dL (74-106); Magnesium 2.4 mg/dL (1.6-2.6); Phosphorus 3.3 mg/dL (2.5-4.9); Protein, Total 5.1 g/dL (6.4-8.2); Sodium Level 141 mmol/L (136-145); Thyroid Stim Hormone (TSH) 2.32 uIU/mL (0.358-3.74)
[2023-10-06] MEDS: Pantoprazole Sodium 80 MG in 0.9% Normal Saline (100mL Bag) 80 ML 10 MG IVPB ×2 (04:30→17:05)
[2023-10-06] MEDS: Piperacil/Tazobactam 3.375 GM in 0.9% Normal Saline (50mL MB+) 50 ML IV ×2 (05:02→13:46)
[2023-10-06 05:13] VITALS: BMI 20.9
[2023-10-06 05:15] VITALS: O2SAT 96
--- NOTE | 2023-10-06 07:24 | PN.HOSP_ITS ---
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) Pneumonia, unspecified organism (10/05/23) Gastrointestinal hemorrhage, unspecified (10/05/23) Tubulo-interstitial nephritis, not specified as acute or chronic (10/05/23) Nausea with vomiting, unspecified (10/05/23) Diarrhea, unspecified (10/05/23) COVID-19 (10/05/23) Objective Data Objective Data Vital Signs: Vital Signs Temp Pulse Resp BP Pulse Ox O2 Del Method O2 Flow Rate 96.9 F L 60 14 109/70 96 Nasal Cannula 2 10/05/23 23:00 10/05/23 23:00 10/05/23 23:00 10/05/23 23:00 10/06/23 05:15 10/06/23 05:15 10/06/23 05:15 Oxygen Flow Rate (L/min) 2 Oxygen Delivery Method Nasal Cannula Weight: 179 lb 3.773 oz Body Mass Index (BMI) 20.9 Intake & Output: Intake and Output for Last 24 Hours 10/04/23 10/05/23 10/06/23 23:59 23:59 23:59 Intake Total 4066.25 / 4066.25 136.33 / 136.33 Output Total 1500 / 1500 Balance 2566.25 / 2566.25 136.33 / 136.33 Lab / Micro Data 10/06/23 03:20 10/06/23 03:20 Labs: Laboratory Results - last 24 hr 10/05/23 05:30: Prealbumin 13.4 L 10/05/23 13:15: Urine Color Yellow, Urine Clarity Clear, Urine pH 8.0, Ur Specific [place] 1.010, Urine Protein Negative, Urine Glucose (UA) Normal, Urine Ketones Negative, Urine Occult Blood Negative, Urine Nitrite Negative, Urine Bilirubin Negative, Urine Urobilinogen Normal, Ur Leukocyte Esterase 25 H, Urine RBC 0 SEEN, Urine WBC 0-5 SEEN, Ur Squamous Epith Cells 0 SEEN, Urine Bacteria 0 SEEN, Urine Mucus 0 SEEN 10/06/23 03:20: WBC 7.5, RBC 3.45 L, Hgb 9.6 L, Hct 30.4 L, MCV 88.1, MCH 27.8, MCHC 31.6 L, RDW Std Deviation 43.8, RDW Coeff of Monika 13.6, Plt Count 141 L, MPV 9.8, Immature Gran % (Auto) 1.300 H, Neut % (Auto) 73.5 H, Lymph % (Auto) 17.6 L , Pope % (Auto) 4.8, Eos % (Auto) 2.4, Baso % (Auto) 0.4, Absolute Neuts (auto) 5.5, Absolute Lymphs (auto) 1.31, Nucleated RBC % 0, Sodium 141, Potassium 4.0, Chloride 109 H, Carbon Dioxide 25.0, Anion Gap 7, BUN 25 H, Creatinine 1.09, Estim Creat Clear Calc 92.43, Est GFR (MDRD) Af Amer 92, Est GFR (MDRD) Non-Af 76, BUN/Creatinine Ratio 22.9 H, Glucose 88, Calcium 7.5 L, Phosphorus 3.3, Magnesium 2.4, Total Bilirubin 0.70, AST 20, ALT 18, Alkaline Phosphatase 87, T otal Protein 5.1 L, Albumin 1.9 L, Globulin 3.2, Albumin/Globulin Ratio 0.6 L, TSH 2.32 Micro: Microbiology 10/05/23 13:15 Urine, Clean Catch Legionella Antigen - Final 10/05/23 13:15 Urine, Clean Catch Streptococcus pneumoniae Antigen (M - Final 10/05/23 09:30 Mucosa - Nose Respiratory Panel (PCR) - Final Adenovirus Radiography Diagnostic Testing: Radiology Impression Abdomen X-Ray 10/05/23 08:49 IMPRESSION: Nonspecific gas pattern. Electronically Signed: Miguel Jade MD at 9:51 EDT , Physical Exam Narrative Seen and examined Vitals reviewed. Baseline BP is about 120-140 but variable. Blood pressure has improved on the monitor in the morning on the last 20 days 109/70 from yesterday night. Pt has low cognitive ability or low higher mental function but ADL is mostly independent though urine incontinent. Limited speech ability with few words. Has chronic constipation. No abd pain General: Awake, alert but chronic cognitive deficit/LOW execution. BMI 20.8 kg/m2 HEENT: PERRLA. EOMI Oral: Oral mucosa dry. No Gingival or Mucosal Lesions/ Ulcerations Neck: Supple, No JVD, Negative Carotid Bruits Chest wall/Lungs: Air entry diminished in bilateral lung bases. Bilateral COARSE crepitations more on right base Cardiovascular: Sinus rhythm Normal S1, Normal S2, No M/G/R Abdomen: Bowel Sounds sluggish, Soft, Non Tender, Non-Distended : Chronic incontinence. Dysuria can't be ascertained but no acute change in LUTS. . No renal angle tenderness. No suprapubic tenderness. Extremities: No edema, Capillary Refill Less than 3 Seconds Skin: No rashes, No breakdown Musculoskeletal: ROM slightly limited. No acute bony or joint tenderness Neurological: DTR 2+/4.Low speech output with few words. Limited exam due to MRDD. Psych/Mental Status: Flat affect. Assessment & Plan Assessment/Plan (1) Acute upper gastrointestinal bleeding: (2) Nausea & vomiting: QUALIFIERS: Vomiting type: unspecified Qualified Code(s): R11.2 - Nausea with vomiting, unspecified (3) Multifocal pneumonia: (4) COVID: (5) Pyelonephritis: (6) Diarrhea: QUALIFIERS: Diarrhea type: presumed infectious Qualified Code(s): R19.7 - Diarrhea, unspecified (7) Developmental disability: PLAN: Plan 52-year-old gentleman with developmental delay/language deficit/Debility was admitted through ER for nausea, vomiting, hematemesis, dark stools/melena for 1 day prior to admission. The whole family had COVID in the last 1 month. There was also concern of COVID-pneumonia and UTI in ED. 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 1. Acute upper GI Bleed - Admit to ICU. Started on IV Protonix drip after bolus. Blood has already been typed and screened we will transfuse for hemoglobin less than 7 g/dL. CT abdpmen is cancelled as he recently had CT abd on 10/02 which colon with feces and rectal dilation about 8.6 cm Check stool studies and place on enteric precautions plus start empiric IV Flagyl until C. difficile has been ruled out. GI consulted and discussed with Dr. Gonzalez. Patient family agreed with EGD but refused Colonoscopy. 10/04: HH doesn't show much decrease than baseline 13.5. Current HH 12.8/40. Had 2-3 episodes of hematemesis with vomiting. NPO. The patient is self pay, Charli therfore doesn't want ICU stay but BP profile is similiar since morning aobut low 100s but not tachycardia. IVF RL 1 lire ordered, the status changed to PCU. Stool studies are pending. 10/05: Blood pressure has improved after Ringer lactate bolus yesterday. No fever. Patient is going for EGD 2. Multifocal B/L pneumonia; due to recent COVID-19 infection and Adenovirus with suspected bacterial superinfection with a possible component of aspiration - Place on droplet precautions. He was started on broad-spectrum antibiotics with IV vancomycin, Flagyl and Zosyn but Zosyn D/Derrick bez urine cx showing ESBL E coli 50 k-80 K therefore zosyn changed to Meropenem. Urine Ag are negative. Resp panel positive of Adenovirus 10/05: Will consult ID as the history is complicated of pneumonia like symptoms in the last 1 month., COVID 3. Recently diagnosed UTI with CT evidence of Left pyelonephritis; treated with oral cefdinir - Urine culture as mentioned above. U/A shows LE 25, WBC 0-5, Nitrite negative. Rest as mentioned above. 4. Suspected LORRI due to hypovolemia -Cr was 1.55 on 09/30 and then 2.0 on 10/01 and today 1.61. Volume resuscitate and monitor BMP 10/05: Kidney function shows improvement with BUNs/creatinine 25/1.09. Electrolytes in normal range. 5. Severe intellectual and cognitive and developmental delay - This will likely complicate care and potentially hamper recovery. Otherwise, continue supportive care with as needed Vistaril for breakthrough agitation. 7. Hypothyroidism - Continue supplementation with IV Synthroid while patient is NPO. 8. History of Right inguinal hernia repair and volvulus - Noted. 9. DVT prophylaxis - SCD's only with possible GI bleed outlined in #1. Time spent in disucssion with 2 botheres regarding multiple diagnoses as metntioned above, GI Bleed in particula,its pathophysiology and management and other acitve Pneumonia and ESBL E coli is 40 minutes. His brothers stated that they are worried about high hospital bill and ICU stay. Downgraded to PCU. Microbiology Past 72 Hours 10/05/23 13:15 Urine, Clean Catch Legionella Antigen - Final 10/05/23 13:15 Urine, Clean Catch Streptococcus pneumoniae Antigen (M - Final 10/05/23 09:30 Mucosa - Nose Respiratory Panel (PCR) - Final Adenovirus Laboratory Results 10/05/23 05:30: Prealbumin 13.4 L 10/05/23 13:15: Urine Color Yellow, Urine Clarity Clear, Urine pH 8.0, Ur Specific [place] 1.010, Urine Protein Negative, Urine Glucose (UA) Normal, Urine Ketones Negative, Urine Occult Blood Negative, Urine Nitrite Negative, Urine Bilirubin Negative, Urine Urobilinogen Normal, Ur Leukocyte Esterase 25 H, Urine RBC 0 SEEN, Urine WBC 0-5 SEEN, Ur Squamous Epith Cells 0 SEEN, Urine Bacteria 0 SEEN, Urine Mucus 0 SEEN 10/06/23 03:20: WBC 7.5, RBC 3.45 L, Hgb 9.6 L, Hct 30.4 L, MCV 88.1, MCH 27.8, MCHC 31.6 L, RDW Std Deviation 43.8, RDW Coeff of Monika 13.6, Plt Count 141 L, MPV 9.8, Immature Gran % (Auto) 1.300 H, Neut % (Auto) 73.5 H, Lymph % (Auto) 17.6 L , Pope % (Auto) 4.8, Eos % (Auto) 2.4, Baso % (Auto) 0.4, Absolute Neuts (auto) 5.5, Absolute Lymphs (auto) 1.31, Nucleated RBC % 0, Sodium 141, Potassium 4.0, Chloride 109 H, Carbon Dioxide 25.0, Anion Gap 7, BUN 25 H, Creatinine 1.09, Estim Creat Clear Calc 92.43, Est GFR (MDRD) Af Amer 92, Est GFR (MDRD) Non-Af 76, BUN/Creatinine Ratio 22.9 H, Glucose 88, Calcium 7.5 L, Phosphorus 3.3, Magnesium 2.4, Total Bilirubin 0.70, AST 20, ALT 18, Alkaline Phosphatase 87, T otal Protein 5.1 L, Albumin 1.9 L, Globulin 3.2, Albumin/Globulin Ratio 0.6 L, TSH 2.32 Clinical Impression(s) from Imaging Studies Chest X-Ray 10/05/23 05:09 IMPRESSION: Increased patchy consolidation right lung and left lower lobe. Findings may be due to pneumonia and/or edema. Electronically Signed: Sj Bergman MD at 6:15 EDT , Abdomen X-Ray 10/05/23 08:49 IMPRESSION: Nonspecific gas pattern. Electronically Signed: Miguel Jade MD at 9:51 EDT , Charges/Coding Visit Charges Inpatient E&M: 25978 Subs Hosp L3
[2023-10-06 07:40] VITALS: O2SAT 94
[2023-10-06 08:00] VITALS: BP 134/72; PULSE 69; RESP 20; TEMP 36.6; O2SAT 98
[2023-10-06] MEDS: Vancomycin HCl 750 MG in 0.9% Normal Saline (250mL Bag) 250 ML 250 MG IV (09:05)
--- NOTE | 2023-10-06 09:35 | CASEMGMT ---
RN CM Assessment Pt has a history of severe mental retardation and is a poor historian and is unable to answer this RN CM questions for assessment at this time. TC to pt FRANCES (Brother - Vladislav) for assessment. Vladislav states that he is willing to answer this RN CM questions for initial assessment. Care providers, pharmacy, and demographics verified. Admitting dx: Blood in Emesis with Dark Stools LACE Strata: 2 PCP: Олег Wen Specialists: Denies Preferred Pharmacy: [facility] Insurance: Pt is SP. Pt brother states that he is interested in the pt applying for [facility]. SW aware and to f/u with pt brother. Prescription Benefit: to provide resources LNOK: Vladislav Navas (Brother), Floyd Navas (Father) Living Arrangements: Pt lives with his family of 14 (Mom, Dad, and siblings) in a 2 story home with a ramp to enter and a [facility] ADLs/IADLs: Dependent on Family members Transportation: Family DME: BP Cuff, Pulse Ox, Walk in shower with chair and GB. Pt is currently on 2L of O2. CM to follow for potential home needs. HHC/SNF: Denies history or needs Plan: Home with family support. Pt brother states that the pt will not require any HHC or OP therapy. Pt brother states that the pt has plenty of help at home and wishes the pt to return home once medically ready. CM to follow for potential oxygen requirements and any additional home going needs. Brandi Shetty RN, CM
--- NOTE | 2023-10-06 09:35 | CASEMGMT ---
Social Work SW sent an email to Myranda [employer]an/[employer], requesting she meet w/family to apply for Medicaid, as they did indicate to CM they are interested in completing POA papers. HJ Espinoza
[2023-10-06 14:00] VITALS: BP 130/73; PULSE 68; RESP 18; TEMP 36.6; O2SAT 98
[2023-10-06 14:53] LABS: Hematocrit 32.6 % (40-54); Hemoglobin 10.7 g/dL (13.0-16.5)
[2023-10-06 18:59] LABS: Hematocrit 35.3 % (40-54); Hemoglobin 11.4 g/dL (13.0-16.5)
[2023-10-06 20:00] VITALS: BP 114/59; PULSE 69; RESP 18; TEMP 36.4; O2SAT 96
[2023-10-06 20:48] LABS: Vancomycin, Trough Level 12.4 ug/mL (5.0-15.0)
--- NOTE | 2023-10-06 21:02 | PCM.RX.CS ---
Consult Antibiotic Management Pharmacy has been consulted to manage selected antibiotic: Vancomycin Type of Intervention Type of Consult: Follow-up Suspected Infection Suspected Infection: Pneumonia Labs Labs: Sodium 141 mmol/L (136-145) 10/06/23 03:20 Potassium 4.0 mmol/L (3.5-5.1) 10/06/23 03:20 Chloride 109 mmol/L (98-107) H 10/06/23 03:20 Carbon Dioxide 25.0 mmol/L (21.0-32.0) 10/06/23 03:20 Anion Gap 7 (5-15) 10/06/23 03:20 BUN 25 mg/dL (7-18) H 10/06/23 03:20 Creatinine 1.09 mg/dL (0.70-1.30) 10/06/23 03:20 Est GFR (MDRD) Af Amer 92 mL/min (>60) 10/06/23 03:20 Est GFR (MDRD) Non-Af 76 mL/min (>60) 10/06/23 03:20 BUN/Creatinine Ratio 22.9 RATIO (10-20) H 10/06/23 03:20 Glucose 88 mg/dL (74-106) 10/06/23 03:20 Vancomycin Trough 12.4 ug/mL (5.0-15.0) 10/06/23 18:40 Microbiology Microbiology: Microbiology 10/05/23 13:15 Urine, Clean Catch Legionella Antigen - Final 10/05/23 13:15 Urine, Clean Catch Streptococcus pneumoniae Antigen (M - Final 10/05/23 09:30 Mucosa - Nose Respiratory Panel (PCR) - Final Adenovirus Goal Trough Goal Trough: 15-20 mcg/mL Pharmacy Plan for Drug Dosing Pharmacy Plan for Drug Dosing: VANCOMYCIN LEVEL RECEIVED Current Vancomycin Dose: 750mg q12h (10,22) Number of Doses Received: x1 1500mg dose, x2 750mg doses Vancomycin Level: 12.4 Hours Since Last Dose: 11 hour level Renal Function: SrCr 1.09 Renal Function Trend: SrCr improving (was 1.61) Lab/Micro: Vancomycin Plan/Comments: resulted trough of 12.4 is below the ordered goal trough of 15-20. recommend increasing the dose from 750mg to 1000mg q12h. trough prior to the 4th dose Pending Level: 10/08/23 @ 0930 Pharmacy Service will continue to monitor and adjust dosing as required. Follow-Up Labs Follow-Up Labs: Trough: Vancomycin (10/08/23 @ 0930)
[2023-10-06 21:05] VITALS: O2SAT 96
[2023-10-06] MEDS: Vancomycin IV 1,000 MG/200 ML BAG 200 MG IV (21:22)
[2023-10-06] MEDS: Vancomycin Trough/Random Due 1 LAB MC (21:22)
[2023-10-06] MEDS: hydrOXYzine 50 MG/ML Vial 25 MG IM (22:35)
--- NOTE | 2023-10-06 22:45 | NURSING ---
Around 2215 hours - patient became very agitated, pulled off monitoring equipment, bed linens, and accessed bathroom trashcan to start throwing things against the wall below the windows in patient room. Family notified RN, and stated that the patient has needed medication prior to manage intermittent agitation. All lines disconnected from Patient to attempt to keep IV access. IM 25mg vistaril given for agitation. Patient resting in bed -- still quite restless. Medication is ordered Q6H, will continue to monitor. RN to restart IVF/Protonix/ABX when safe to do so.
[2023-10-07] VITALS (12 sets, daily range): BP systolic 99–143; BP diastolic 56–101; PULSE 56–79; RESP 14–16; TEMP 36.1–36.9; O2SAT 94–100
--- NOTE | 2023-10-07 00:16 | PCM.HOSP.N ---
Hospitalist Note Patient with agitation despite hydroxyzine administration. Pulling at his IV line. Will attempt an oral low-dose of Seroquel and reevaluate.
--- NOTE | 2023-10-07 00:21 | NURSING ---
Gave patient update to Dr. Jain regarding holding IVFs and patient agitation. Orders Received for 25mg Seroquel. Will continue to monitor for increased restlessness/agitation.
[2023-10-07] MEDS: QUEtiapine 25 MG Tablet PO (00:43)
[2023-10-07] MEDS: Meropenem 1 GM in 0.9% Normal Saline (100mL MB+) 100 ML IV (05:18)
[2023-10-07 05:36] LABS: Absolute Lymphocyte Count 1.69 X10^3/uL (0.83-4.51); Basophil# 0.06 X10^3/uL; Basophil% 0.8 % (0-1); Eosinophil# 0.34 X10^3/uL; Eosinophils% 4.4 % (0-5); Hematocrit 32.5 % (40-54); Hemoglobin 10.8 g/dL (13.0-16.5); Lymphocyte # 1.69 X10^3/ul (0.83-4.51); Lymphocyte % 21.7 % (19-41); Mean Corp Hgb Conc 33.2 g/dL (32-36); Mean Corpuscular Hgb 27.9 pg (27.0-32.0); Mean Platelet Vol. 9.7 fl (6.2-12.0); Monocyte# 0.36 X10^3/uL; Monocyte% 4.6 % (0-10); NRBC Flagged by Analyzer 0 % (0-5); Neutrophil # 4.98 X10^3/uL (2.7-7.7); POSITIVE MORPHOLOGY YES; Platelet Count 187 K/mm3 (150-450); RBC Distribution Width CV 13.1 % (11.6-14.6); RBC Distribution Width SD 39.5 fl (35.1-43.9); Red Blood Count 3.87 M/mm3 (4.6-6.2); White Blood Count 7.8 K/mm3 (4.4-11.0)
[2023-10-07 06:04] LABS: Anion Gap 9 (5-15); BUN 18 mg/dL (7-18); BUN/Creat Ratio 17.3 RATIO (10-20); Calcium,Total 8.1 mg/dL (8.5-10.1); Chloride 104 mmol/L (98-107); Creatinine, Serum 1.04 mg/dL (0.70-1.30); EST Glomerular Filtration Rate 80 mL/min (>60); Est Glom Filt Rate - Afr Amer 97 mL/min (>60); Estimated Creatinine Clearance 93.27 ml/min; Glucose 111 mg/dL (74-106); Potassium 3.5 mmol/L (3.5-5.1); Sodium Level 138 mmol/L (136-145)
[2023-10-07] MEDS: Pantoprazole Sodium 80 MG in 0.9% Normal Saline (100mL Bag) 80 ML 10 MG IVPB (06:32)
[2023-10-07] MEDS: hydrOXYzine 50 MG/ML Vial 25 MG IM (07:00)
--- NOTE | 2023-10-07 07:03 | NURSING ---
Family at bedside communicated with RN that the patient was being come agitated this AM following the discovery that the patient did not have his clothes from home. Patient reportedly hitting the wall with frustration. Gave 25 mg Vistaril IM; patient observed to be vocalizing loudly and guarding against RN care. Will continue to monitor.
[2023-10-07] MEDS: Vancomycin IV 1,000 MG/200 ML BAG 200 MG IV (09:46)
--- NOTE | 2023-10-07 12:57 | PN.HOSP_ITS ---
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 Was given a dose of p.o. Seroquel with some improvement. Saw patient at bedside this morning, patient's mother and brother are present. Patient was laying comfortably in bed in bed was moved over near the window per family request. Patient was muttering to himself consistently but otherwise did not appear to be in any acute distress. Family noted that he appeared somewhat agitated when they arrived this morning but after a dose of hydroxyzine had some improvement. Patient not able to answer any questions for me. Family notes that patient appears to be around his baseline currently. No other acute concerns morning. Objective Data Objective Data Vital Signs: Vital Signs Temp Pulse Resp BP Pulse Ox O2 Del Method O2 Flow Rate 98.4 F 59 L 16 136/67 H 97 Room Air 2 10/07/23 08:00 10/07/23 08:00 10/07/23 08:00 10/07/23 08:00 10/07/23 08:00 10/07/23 08:10 10/06/23 07:40 Oxygen Flow Rate (L/min) 2 Oxygen Delivery Method Room Air Weight: 77.6 kg Body Mass Index (BMI) 20.0 Intake & Output: Intake and Output for Last 24 Hours 10/05/23 10/06/23 10/07/23 23:59 23:59 23:59 Intake Total 4066.25 / 4066.25 2120.50 / 2120.50 359.67 / 359.67 Output Total 1500 / 1500 0 / 0 Balance 2566.25 / 2566.25 2120.50 / 2120.50 359.67 / 359.67 Lab / Micro Data 10/07/23 05:32 10/07/23 05:32 Labs: Laboratory Results - last 24 hr 10/06/23 14:30: Hgb 10.7 L, Hct 32.6 L 10/06/23 18:40: Hgb 11.4 L, Hct 35.3 L, Vancomycin Trough 12.4 10/07/23 04:35: Sodium Cancelled, Potassium Cancelled, Chloride Cancelled, Carbon Dioxide Cancelled, Anion Gap Cancelled, BUN Cancelled, Creatinine Cancelled, Estim Creat Clear Calc Cancelled, Est GFR (MDRD) Af Amer Cancelled, Est GFR (MDRD) Non-Af Cancelled, BUN/Creatinine Ratio Cancelled, Glucose Cancelled, Calcium Cancelled 10/07/23 05:32: WBC 7.8, RBC 3.87 L, Hgb 10.8 L, Hct 32.5 L, MCV 84.0, MCH 27.9, MCHC 33.2 D, RDW Std Deviation 39.5, RDW Coeff of Monika 13.1, Plt Count 187, MPV 9.7, Immature Gran % (Auto) 4.500 H, Neut % (Auto) 64.0, Lymph % (Auto) 21.7, [place] % (Auto) 4.6, Eos % (Auto) 4.4, Baso % (Auto) 0.8, Absolute Neuts (auto) 5.0, Absolute Lymphs (auto) 1.69, Nucleated RBC % 0, Sodium 138, Potassium 3.5, Chloride 104, Carbon Dioxide 25.0, Anion Gap 9, BUN 18, Creatinine 1.04, Estim Creat Clear Calc 93.27, Est GFR (MDRD) Af Amer 97, Est GFR (MDRD) Non-Af 80, BUN/Creatinine Ratio 17.3, Glucose 111 H, Calcium 8.1 L Micro: Microbiology 10/05/23 09:30 Blood Culture (Wb) - Right Forearm Blood Culture - Preliminary No growth in 48 hours. 10/05/23 09:25 Blood Culture (Wb) - Anticubital Left Blood Culture - Preliminary No growth in 48 hours. 10/05/23 13:15 Urine, Clean Catch Urine Culture - Final Mixed Gram Pos & Gram Neg Org 10/05/23 13:15 Urine, Clean Catch Legionella Antigen - Final 10/05/23 13:15 Urine, Clean Catch Streptococcus pneumoniae Antigen (M - Final 10/05/23 09:30 Mucosa - Nose Respiratory Panel (PCR) - Final Adenovirus Physical Exam Const alert, no apparent distress and average body habitus Constitutional Narrative: Middle-age male, MRDD, lying comfortably in bed, making eye contact with me but not answering any questions appropriately, muttering to himself consistently but does not appear to be in any distress. General Appearance: cooperative and comfortable HEENT normocephalic, head/scalp atraumatic, hearing grossly normal bilaterally, nasal mucous membranes and turbinates normal and moist oral mucous membranes Eyes PERRL, EOMs intact bilaterally and conjunctivae normal Neck full ROM Chest inspection of chest normal Resp normal respiratory effort and no use of accessory muscles Resp Narrative: Breathing comfortably on room air at rest with good oxygen saturations. Mild crackles noted in right lung, otherwise good air movement throughout. Cardio regular rate, regular rhythm, no murmurs and peripheral pulses 2+ throughout GI normal to inspection, nondistended, normoactive bowel sounds, soft to palpation, non-tender and non-distended Back/Spine normal ROM Extremity normal to inspection, full ROM and no pedal edema Skin no rashes or lesions noted Neuro no focal motor deficits and no sensory deficits noted Psych mental status grossly normal Assessment & Plan Assessment/Plan (1) Acute upper gastrointestinal bleeding: (2) Adenovirus pneumonia: (3) History of developmental delay: (4) Acute renal insufficiency: PLAN: Plan Patient is a 52-year-old male who presented to [facility] ED on 10/05/2023 with worsening shortness of breath, nausea/vomiting, hematemesis and 2 episodes of dark stools. 1. Acute upper GI bleed with mild acute blood loss anemia ? GI following. EGD on 10/06 showed grade D erosive esophagitis with bleeding noted that was treated with heater probe, along with large hiatal hernia. Treated with IV PPI twice daily since admission, okay to de-escalate to p.o. PPI twice daily on 10/07. Baseline hemoglobin around 12-13. Hemoglobin taina of 9.6 on 10/05, now stable around 10.5-11. Will recheck hemoglobin tomorrow; if remains stable and no further evidence of bleeding, likely okay for discharge home tomorrow. 2. Pneumonia secondary to adenovirus with concern for superimposed bacterial pneumonia versus aspiration pneumonitis ? Chest x-ray on admit with increased patchy consolidation of right lung and left lower lobe compared to previous chest x-ray from 09/30. Not on home submental oxygen and was requiring supplemental oxygen at rest on admission. However, had quick improvement and satting well on room air at rest with no increased work of breathing on 10/06. Positive for adenovirus on admission. Suspect worsened imaging findings and initial oxygen requirement were most likely secondary to an aspiration event in the setting of acute upper GI bleed as noted above. Bacterial pneumonia workup negative, antibiotics discontinued on 10/06. Continue precautions for adenovirus. If remains stable, okay for discharge home tomorrow with no oxygen requirements. 3. Recently diagnosed UTI with left pyelonephritis ? Treated with oral cefdinir with good improvement. UA on admission not infectious appearing. Stable. 4. 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 Charli background, lives with family and has great family support. Per family, is intermittently agitated at home and appears to be around his baseline. Treating intermittent agitation with hydroxyzine as needed and redirection. Monitor. 5. LORRI, resolved ? Creatinine 2.0 on admit, baseline creatinine around 1. Improved back to baseline with IV fluid resuscitation. Chronic medical conditions: ? Hypothyroidism: Continue home Synthroid. ? History of right inguinal hernia repair DVT prophylaxis: SCDs CODE STATUS: Full code, unverified Expected disposition: Home, 1 to 2 days Total clinical time spent by myself addressing the patient's medical issues, reviewing all the data, and collaborating with patient's care team: 35 minutes. Charges/Coding Visit Charges Inpatient E&M: 21612 Subs Hosp L2
[2023-10-07] MEDS: Haloperidol Lactate 5 MG/ML Vial 1 MG IM (13:56)
[2023-10-07] MEDS: Lactated Ringers 1,000 ML 15 ML IV (14:45)
--- NOTE | 2023-10-07 16:00 | EGD_PTH ---
PATIENT: SIMON SHELTON LOC: [facility] U#:[id number] AGE/SX: 52/M ROOM: [facility] RE10/05/[address]: Dr. Aravind Taylor DO : 1970 BED: 1 DIS: 10/08/2023 SPEC #: [id number] RECD: 10/07/23 18:05 STATUS: ANDRÉS REQ #: [id number] MARIA ELENA: 10/07/23 16:[address]: Aravind Taylor DEPT: SURGICAL PATHOLOGY RECD BY: Merissa Eng ENTERED: 10/08/23 12:14 SP TYPE: EGD BIOPSY OT DR: DO Dr. Олег Patel DO Dr. Prakash Chand, MD Tissues: Esophagus, NOS Procedures: Special Stain Group I Surgery Specimen Level IV GMS Stain (control) HEADER OPERATION: EGD, biopsy, electrohemostasis PRE-OP DIAGNOSIS: Acute upper gastrointestinal bleeding, nausea/vomiting TISSUE SUBMITTED: Random esophagus biopsy MICROSCOPIC DIAGNOSIS Esophagus, random biopsy: Focal acute inflammation. Fibrinoid material. No evidence of fungal organisms. See comment. AM/mr 10/09/2023 COMMENT GMS stain with matched control was used in the evaluation of this case. MICROSCOPIC DESCRIPTION Slides are reviewed. GROSS DESCRIPTION Received in fixative is one container labeled with the patient's name and designated Random esophagus biopsy. The specimen consists of multiple irregular fragments of light mckinnon soft tissue that in aggregate measure 1.0 x 0.3 x 0.1 cm. The specimen is totally submitted in one cassette. AM/mr 10/08/23 TC:2 CPT:61618,13220
--- NOTE | 2023-10-07 17:39 | OP.EGD_ITS ---
Patient Name: Lewis Navas Procedure Date: 10/07/2023 4:53 PM Date of : 1970 Age: 52 Procedure: Upper GI endoscopy Indications: Hematemesis Providers: Trevin Gonzalez DO Medicines: Monitored Anesthesia Care Patient Profile: This is a 52 year old male. Refer to note in patient chart for documentation of history and physical. Patient has symptoms of acute vomiting. Complications: No immediate complications. Procedure: Pre-Anesthesia Assessment: - Prior to the procedure, a History and Physical was performed, and patient medications and allergies were reviewed. The patient is competent. The risks and benefits of the procedure and the sedation options and risks were discussed with the patient. All questions were answered and informed consent was obtained. Patient identification and proposed procedure were verified by the physician. Mental Status Examination: normal. Respiratory Examination: clear to auscultation. Prophylactic Antibiotics: The patient does not require prophylactic antibiotics. Prior Anticoagulants: The patient has taken no anticoagulant or antiplatelet agents. ASA Grade Assessment: II - A patient with mild systemic disease. After reviewing the risks and benefits, the patient was deemed in satisfactory condition to undergo the procedure. The anesthesia plan was to use monitored anesthesia care (MAC). Immediately prior to administration of medications, the patient was re-assessed for adequacy to receive sedatives. The heart rate, respiratory rate, oxygen saturations, blood pressure, adequacy of pulmonary ventilation, and response to care were monitored throughout the procedure. The physical status of the patient was re-assessed after the procedure. After obtaining informed consent, the endoscope was passed under direct vision. Throughout the procedure, the patient's blood pressure, pulse, and oxygen saturations were monitored continuously. The gastroscope was introduced through the mouth, and advanced to the second part of duodenum. The upper GI endoscopy was accomplished without difficulty. The patient tolerated the procedure well. Scope In: 5:13:25 PM Scope Out: 5:19:50 PM Total Procedure Duration Time 0 hours 6 minutes 25 seconds Findings: LA Grade D (one or more mucosal breaks involving at least 75% of esophageal circumference) esophagitis with bleeding was found 35 to 42 cm from the incisors. Biopsies were taken with a cold forceps for histology. Verification of patient identification for the specimen was done. Coagulation for hemostasis using heater probe was successful. Estimated blood loss was minimal. A large hiatal hernia was present. No gross lesions were noted in the duodenal bulb. Impression: - LA Grade D erosive esophagitis with bleeding. Biopsied. Treated with a heater probe. - Large hiatal hernia. - No gross lesions in the duodenal bulb. Recommendation: - [facility]. - Resume previous diet. - Continue present medications. - Await pathology results. - Repeat upper endoscopy in 4 months for surveillance. - Use Protonix (pantoprazole) 40 mg PO BID. Procedure Code(s): --- Professional --- 59136, 59, Esophagogastroduodenoscopy, flexible, transoral; with control of bleeding, any method 72731, 51, Esophagogastroduodenoscopy, flexible, transoral; with biopsy, single or multiple CPT copyright 2021 [employer]. All rights reserved. The codes documented in this report are preliminary and upon lining baster review may be revised to meet current compliance requirements. Trevin Gonzalez DO 10/07/2023 5:39:12 PM This report has been signed electronically. Number of Addenda: 0 Note Initiated On: 10/07/2023 4:53 PM
--- NOTE | 2023-10-07 17:39 | OP.CCLET_ITS ---
10/07/2023 Олег Wen [address] [facility] [place] [place] [address] Re : Upper GI endoscopy procedure for Lewis Reddecopp Dear Dr. Wen This procedure was performed on Saturday, October 07, 2023. My impressions and recommendations are as follows: Impressions : - LA Grade D erosive esophagitis with bleeding. Biopsied. Treated with a heater probe. - Large hiatal hernia. - No gross lesions in the duodenal bulb. Recommendations : - [facility]. - Resume previous diet. - Continue present medications. - Await pathology results. - Repeat upper endoscopy in 4 months for surveillance. - Use Protonix (pantoprazole) 40 mg PO BID. My findings are described in the full procedure note, which is enclosed. If I can be of further assistance, please feel free to contact me at . Sincerely, Trevin Friend, 10/07/2023 5:39:12 PM This report has been signed electronically.
--- NOTE | 2023-10-07 22:21 | PCM.HOSP.N ---
Hospitalist Note VS stable, patient constantly removing his monitor, will remove for now given it is causing him severe agitation when put back on.
[2023-10-08 02:33] VITALS: BMI 19.3
[2023-10-08 03:36] VITALS: BP 109/64; PULSE 55; RESP 18; TEMP 36.2; O2SAT 97
[2023-10-08] MEDS: Levothyroxine 100 MCG Tablet PO (06:08)
[2023-10-08 06:19] LABS: Hematocrit 33.9 % (40-54); Hemoglobin 11.1 g/dL (13.0-16.5); Mean Corp Hgb Conc 32.7 g/dL (32-36); Mean Corpuscular Hgb 27.8 pg (27.0-32.0); Mean Platelet Vol. 9.4 fl (6.2-12.0); Platelet Count 249 K/mm3 (150-450); RBC Distribution Width CV 12.9 % (11.6-14.6); RBC Distribution Width SD 39.7 fl (35.1-43.9); Red Blood Count 3.99 M/mm3 (4.6-6.2); White Blood Count 7.9 K/mm3 (4.4-11.0)
[2023-10-08 07:52] VITALS: O2SAT 96
[2023-10-08] MEDS: Pantoprazole Sodium 40 MG Tablet PO (08:19)
[2023-10-08 09:30] VITALS: BP 109/58; PULSE 62; RESP 18; TEMP 36.6; O2SAT 94
[2023-10-08 09:46] LABS: Vancomycin, Trough Level 7.5 ug/mL (5.0-15.0)
--- NOTE | 2023-10-08 11:43 | PCM.DC ---
Discharge Instructions Diet Discharge Diet: No restrictions Activity Discharge Activity: No Restrictions Additional Activity Instructions:: Further speech therapy recommended going forward. Follow Up Care Test Results: Test results from this visit will be discussed in further detail at your follow-up appointment, if applicable. Discharge Plan Admission Admit Date/Time: 10/05/23 07:07 Primary Reason for Your Visit: Shortness of breath, nausea/vomiting, blood in vomitus and dark stools Attending Provider: Aravind Taylor Primary Care Provider: Олег Wen Consulting Providers: Polo Coyle; Kendell Kruger Discharge Orders/Prescriptions Prescriptions: New pantoprazole 40 mg Tablet,Delayed Release (Dr/Ec) 40 mg PO BID 90 Days Qty: 180 1RF Continued cefdinir 300 mg capsule 300 mg PO Q12H 7 Days Qty: 14 0RF thyroid (pork) [[place] Thyroid] 60 mg tablet 60 mg PO DAILY ondansetron 4 mg tablet,disintegrating 4 mg PO Q8H PRN PRN (Reason: Nausea) Qty: 10 0RF polyethylene glycol 3350 [Miralax] 17 gram/dose powder 17 g PO BID Qty: 510 2RF Referrals / Follow Up: Олег Wen DO [Primary Care Provider] - Disposition Disposition (needs filled in before D/C Order can be placed): Home, Self Care
--- NOTE | 2023-10-08 11:47 | DS.PCM_ITS ---
Providers Date of Admission: 10/05/23 Date of Discharge: 10/08/23 Primary Care Physician: Dr. Олег Wen, DO Consultations 10/05/23 07:55 Consult: Gastroenterology Routine Consulting Provider: [facility] Reason for Consult: Blood in vomitus with dark diarrheal stools after recent antibiotics. EMERGENT Consult: No MD Notified: Yes Date Notified: 10/05/23 Time Notified: 10:00 Method of Notification: Text Consult: Curator Of Education / Pulmonary Medicine Routine Consulting Provider: Intensivists/Pulmonary Med Reason for Consult: Multifocal pneumonia, diarrhea & recent COVID-19. EMERGENT Consult: No Notified: Yes Date Notified: 10/05/23 Time Notified: 11:00 Method of Notification: Verbal Reason For Visit: BLOOD IN EMESIS WITH DARK STOOLS, Diagnosis Discharge Diagnosis (1) Acute upper gastrointestinal bleeding: Status: Acute Code(s): K92.2 - Gastrointestinal hemorrhage, unspecified (2) Adenovirus pneumonia: Status: Acute Code(s): J12.0 - Adenoviral pneumonia (3) History of developmental delay: Status: Acute Code(s): Z87.898 - Personal history of other specified conditions (4) Acute renal insufficiency: Status: Acute Code(s): N28.9 - Disorder of kidney and ureter, unspecified Medications at Discharge Home Medications ondansetron 4 mg disintegrating tablet 4 mg PO Q8H PRN PRN Nausea #10 tabs 10/01/23 thyroid (pork) 60 mg tablet ([place] Thyroid) 60 mg PO DAILY 10/01/23 polyethylene glycol 3350 17 gram/dose oral powder (Miralax) 17 g PO BID #510 grams 10/03/23 pantoprazole 40 mg tablet,delayed release 40 mg PO BID 90 days #180 tabs 10/08/23 sulfamethoxazole 800 mg-trimethoprim 160 mg tablet (Bactrim DS) 1 tab PO BID 7 days #14 tabs 10/08/23 Hospital Course Operations None Procedures EGD and - (Chest x-ray, abdominal x-ray) Summary of Care Provided Minutes Spent on Discharge: 35 Hospital Course: Patient is a 52-year-old male who presented to [facility] ED on 10/05/2023 with worsening shortness of breath, nausea/vomiting, hematemesis and 2 episodes of dark stools. Hospital course as noted below. Discharged home with no therapy needs in stable condition on 10/07. 1. Acute upper GI bleed with mild acute blood loss anemia ? GI followed. EGD on 10/06 showed grade D erosive esophagitis with bleeding noted that was treated with heater probe, along with large hiatal hernia. Treated with IV PPI twice daily since admission, de-escalated to p.o. PPI twice daily on 10/07. Baseline hemoglobin around 12-13. Hemoglobin taina of 9.6 on 10/05, remained stable around 10.5-11 for remainder of hospitalization. Continue p.o. PPI twice daily on discharge. Per GI, recommendation is for repeat EGD in 4 months for surveillance. 2. Pneumonia secondary to adenovirus and COVID 19 with concern for superimposed bacterial pneumonia versus aspiration pneumonitis ? Chest x-ray on admit with increased patchy consolidation of right lung and left lower lobe compared to previous chest x-ray from 09/30. Not on home supplemental oxygen and was requiring supplemental oxygen at rest on admission. However, had quick improvement and satting well on room air at rest with no increased work of breathing on 10/06. Positive for adenovirus on admission and recently positive for COVID on 09/30. Suspect worsened imaging findings and initial oxygen requirement were most likely secondary to an aspiration event in the setting of acute upper GI bleed as noted above. Bacterial pneumonia workup negative. However, continued antibiotics given recently diagnosed pyelonephritis as noted below. No need for steroid treatment as patient off supplemental oxygen on discharge. 3. Recently diagnosed UTI with left pyelonephritis ? Initially presented to ED on 09/30 with fevers with known history of UTIs. UA with positive nitrites, 500 leukocyte esterase, rare bacteria. CT abdomen pelvis showed suspected left-sided pyelonephritis. Was sent home with oral cefdinir at that time. Urine culture grew ESBL E. coli. Will treat with 7-day course of Bactrim on discharge, stop date 10/14. 4. 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 Taoist background, lives with family and has great family support. Per family, is intermittently agitated at home and appears to be around his baseline. Treated intermittent agitation with hydroxyzine as needed and redirection. Stable. 5. LORRI, resolved ? Creatinine 2.0 on admit, baseline creatinine around 1. Improved back to baseline with IV fluid resuscitation. 6. Dysphagia ? Speech therapy followed. Completed bedside swallow evaluation on 10/07. Was noted the patient is impulsive with food and drink. Noted that patient had mild oropharyngeal dysphagia. Recommendation going forward is for one-to-one close to position with feeding and taking medications, with easy to chew solids and thin liquid diet. Chronic medical conditions: ? Hypothyroidism: Continue home Synthroid. ? History of right inguinal hernia repair Total clinical time spent by myself addressing the patient's medical issues, reviewing all the data, and collaborating with patient's care team: 35 minutes. Physical Exam Const alert, no apparent distress and average body habitus Constitutional Narrative: Middle-age male, MRDD, lying comfortably in bed, making eye contact with me but not answering any questions appropriately, in no acute distress. General Appearance: cooperative and comfortable HEENT normocephalic, head/scalp atraumatic, hearing grossly normal bilaterally, nasal mucous membranes and turbinates normal and moist oral mucous membranes Eyes PERRL, EOMs intact bilaterally and conjunctivae normal Neck full ROM Chest inspection of chest normal Resp normal respiratory effort and no use of accessory muscles Resp Narrative: Breathing comfortably on room air at rest with good oxygen saturations. Mild crackles noted in right lung, otherwise good air movement throughout. Stable. Cardio regular rate, regular rhythm, no murmurs and peripheral pulses 2+ throughout GI normal to inspection, nondistended, normoactive bowel sounds, soft to palpation, non-tender and non-distended Back/Spine normal ROM Extremity normal to inspection, full ROM and no pedal edema Skin no rashes or lesions noted Neuro no focal motor deficits and no sensory deficits noted Psych mental status grossly normal Weight / BMI Weight Weight: 75.2 kg Body Mass Index (BMI) 19.3 ABG / Lab / Microbiology Data 10/08/23 05:53 10/07/23 05:32 Laboratory: Laboratory Results - last 24 hr 10/07/23 04:35: WBC Cancelled, Corrected WBC Cancelled, RBC Cancelled, Hgb Cancelled, Hct Cancelled, MCV Cancelled, MCH Cancelled, MCHC Cancelled, RDW Std Deviation Cancelled, RDW Coeff of Monika Cancelled, Plt Count Cancelled, MPV Cancelled, Immature Gran % (Auto) Cancelled, Neut % (Auto) Cancelled, Lymph % (Auto) Cancelled, [place] % (Auto) Cancelled, Eos % (Auto) Cancelled, Baso % (Auto) Cancelled, Absolute Neuts (auto) Cancelled, Absolute Lymphs (auto) Cancelled, Total Counted Cancelled, Neutrophils % (Manual) Cancelled, Band Neutrophils % Cancelled, Lymphocytes % (Manual) Cancelled, Monocytes % (Manual) Cancelled, Eosinophils % (Manual) Cancelled, Basophils % (Manual) Cancelled, Metamyelocytes % Cancelled, Myelocytes % Cancelled, Promyelocytes % Cancelled, Blast Cells % Cancelled, Plasma Cell % (Manual) Cancelled, Other Cells % Cancelled, Nucleated RBC % Cancelled, Nucleated RBCs/100 WBC Cancelled, Differential Comment Cancelled, Diff Path Review Cancelled, Hypersegmented Neuts Cancelled, Atypical Lymphocytes Cancelled, Reactive Lymphocytes Cancelled, Smudge Cells Cancelled, Toxic Granulation Cancelled, Toxic Vacuolation Cancelled, Dohle Bodies Cancelled, Kristofer Rods Cancelled, Platelet Estimate Cancelled, Plt Morphology Comment Cancelled, RBC Morphology Cancelled 10/07/23 04:35: RBC Morphology Cancelled, Polychromasia Cancelled, Hypochromasia Cancelled, Basophilic Stippling Cancelled, Anisocytosis Cancelled, Microcytosis Cancelled, Macrocytosis Cancelled, Spherocytes Cancelled, Sickle Cells Cancelled, Target Cells Cancelled, Tear Drop Cells Cancelled, Ovalocytes Cancelled, Stomatocytes Cancelled, Card-[place] Bodies Cancelled, [place] Cells Cancelled, Bite Cells Cancelled, Crenated Cell Cancelled, Acanthocytes (Spur) Cancelled, Rouleaux Cancelled, Schistocytes Cancelled 10/08/23 05:53: WBC 7.9, RBC 3.99 L, Hgb 11.1 L, Hct 33.9 L, MCV 85.0, MCH 27.8, MCHC 32.7, RDW Std Deviation 39.7, RDW Coeff of Monika 12.9, Plt Count 249, MPV 9.4 10/08/23 09:23: Vancomycin Trough 7.5 Microbiology: Microbiology 10/05/23 09:30 Blood Culture (Wb) - Right Forearm Blood Culture - Preliminary No growth in 48 hours. 10/05/23 09:25 Blood Culture (Wb) - Anticubital Left Blood Culture - Preliminary No growth in 48 hours. 10/05/23 13:15 Urine, Clean Catch Urine Culture - Final Mixed Gram Pos & Gram Neg Org 10/05/23 13:15 Urine, Clean Catch Legionella Antigen - Final 10/05/23 13:15 Urine, Clean Catch Streptococcus pneumoniae Antigen (M - Final 10/05/23 09:30 Mucosa - Nose Respiratory Panel (PCR) - Final Adenovirus D/C Instructions Discharge Diet: No restrictions Additional Activity Instructions: Further speech therapy recommended going forward. Meaningful Use Info Meaningful Use Meaningful Use Diagnoses (Choose all that apply): None applicable Ischemic Stroke Statin Dosing Therapy Reference: STATIN DOSE THERAPY REFERENCE: * Patients > 75 years receive moderate or high dose statin therapy. * Patients 75 years or YOUNGER should receive HIGH intensity statin dose unless contraindicated. You will be required to document reason for non-treatment if statin daily dose does not meet guidelines. HIGH DOSE STATIN THERAPY DAILY Atorvastatin > than or = to 40 mg Rosuvastatin > than or = to 20 mg Amlodipine + Atorvastatin > than or = to 2.5/40 mg Ezetimibe + Simvastatin 10/80 mg Simvastatin 80mg Discharge Plan Admission Admit Date/Time: 10/05/23 07:07 Primary Reason for Your Visit: Shortness of breath, nausea/vomiting, blood in vomitus and dark stools Attending Provider: Aravind Taylor Primary Care Provider: Олег Wen Consulting Providers: Polo Coyle; Kendell Kruger Discharge Orders/Prescriptions Prescriptions: New pantoprazole 40 mg Tablet,Delayed Release (Dr/Ec) 40 mg PO BID 90 Days Qty: 180 1RF sulfamethoxazole-trimethoprim [Bactrim DS] 800-160 mg tablet 1 tab PO BID 7 Days Qty: 14 0RF Continued thyroid (pork) [[place] Thyroid] 60 mg tablet 60 mg PO DAILY ondansetron 4 mg tablet,disintegrating 4 mg PO Q8H PRN PRN (Reason: Nausea) Qty: 10 0RF polyethylene glycol 3350 [Miralax] 17 gram/dose powder 17 g PO BID Qty: 510 2RF Discontinued cefdinir 300 mg capsule 300 mg PO Q12H Qty: 14 0RF Referrals / Follow Up: Олег Wen DO [Primary Care Provider] - Disposition Disposition (needs filled in before D/C Order can be placed): Home, Self Care Charges/Coding Visit Charges Inpatient E&M: 47488 Disch Hosp >30min
[2023-10-08 11:53] VITALS: BP 109/58; PULSE 62; RESP 18; TEMP 36.6; O2SAT 94
--- NOTE | 2023-10-08 12:04 | PHA.DC.MR.R ---
Pharmacy [place] Med Reconciliation Pharmacy Service has performed discharge medication reconciliation for this patient. 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 The patient's discharge medication list was reviewed for discrepancies and discrepancies were resolved. Medications at Discharge Home Medications ondansetron 4 mg disintegrating tablet 4 mg PO Q8H PRN PRN Nausea #10 tabs 10/01/23 thyroid (pork) 60 mg tablet ([place] Thyroid) 60 mg PO DAILY 10/01/23 polyethylene glycol 3350 17 gram/dose oral powder (Miralax) 17 g PO BID #510 grams 10/03/23 cefdinir 300 mg capsule 300 mg PO Q12H 7 days #14 caps 10/08/23 pantoprazole 40 mg tablet,delayed release 40 mg PO BID 90 days #180 tabs 10/08/23
== END 2023-10-08 13:51 | disposition home or self-care (01) | DRG 380 ==
LOC: ED 06:41 → PCU 07:32 → ICU 18:56 → PCU 10-07 11:08
PROVIDERS: Internal Medicine; Internal Medicine Gastroenterology; Admitting Provider Internal Medicine; Emergency Provider Emergency Medicine; PCP Family Medicine; Visit Provider Hospitalist
PROC: 0DJ08ZZ Inspection of Upper Intestinal Tract, Via Natural or Artificial Opening Endoscopic (ICD-10-PCS; CPT 43235; principal; 2023-10-07 15:55)
DX: K22.11 Ulcer of esophagus with bleeding (principal); J69.0 Pneumonitis due to inhalation of food and vomit; J12.82 Pneumonia due to coronavirus disease 2019; J12.0 Adenoviral pneumonia; U07.1 COVID-19; D62 Acute posthemorrhagic anemia; N17.9 Acute kidney failure, unspecified; N12 Tubulo-interstitial nephritis, not specified as acute or chronic; F72 Severe intellectual disabilities; Z16.12 Extended spectrum beta lactamase (ESBL) resistance; E03.9 Hypothyroidism, unspecified; K44.9 Diaphragmatic hernia without obstruction or gangrene; E86.1 Hypovolemia; K27.4 Chronic or unspecified peptic ulcer, site unspecified, with hemorrhage; B96.20 Unspecified Escherichia coli [E. coli] as the cause of diseases classified elsewhere; R13.12 Dysphagia, oropharyngeal phase; R45.1 Restlessness and agitation; Z79.899 Other long term (current) drug therapy
CPT/HCPCS: 36415; 71045; 74019; 80048; 80053; 80202; 81001; 83735; 84100; 84134; 84443; 85014; 85018; 85025; 85027; 85610; 85730; 86850; 86900; 86901; 87040; 87086; 87088; 87449; 87633; 88305; 88312; 92610; 97802; 99285; J2185; J7030; J7040; J7050; J7120; A4216; J2405

== ENCOUNTER → 2023-11-23 | Outpatient (CLI) | payer SELFPAY ==
[2023-11-23 11:40] LABS: Absolute Lymphocyte Count 2.14 X10^3/uL (0.83-4.51); Absolute Neutrophil Count 1.9 X10^3/uL (2.0-7.7); Basophil# 0.04 X10^3/uL; Basophil% 0.8 % (0-1); Eosinophil# 0.26 X10^3/uL; Eosinophils% 5.4 % (0-5); Hematocrit 40.9 % (40-54); Hemoglobin 13.6 g/dL (13.0-16.5); Lymphocyte # 2.14 X10^3/ul (0.83-4.51); Lymphocyte % 44.8 % (19-41); Mean Corp Hgb Conc 33.3 g/dL (32-36); Mean Corpuscular Hgb 27.6 pg (27.0-32.0); Mean Corpuscular Volume 83.1 fL (80-94); Mean Platelet Vol. 9.5 fl (6.2-12.0); Monocyte# 0.39 X10^3/uL; Monocyte% 8.2 % (0-10); NRBC Flagged by Analyzer 0 % (0-5); Neutrophil # 1.94 X10^3/uL (2.7-7.7); Neutrophil % 40.6 % (47-70); Platelet Count 251 K/mm3 (150-450); RBC Distribution Width CV 13.8 % (11.6-14.6); RBC Distribution Width SD 41.7 fl (35.1-43.9); Red Blood Count 4.92 M/mm3 (4.6-6.2); White Blood Count 4.8 K/mm3 (4.4-11.0)
== END | disposition home or self-care (01) ==
LOC: LAB 10:47
PROVIDERS: PCP Family Medicine; Referring Provider Student in an Organized Health Care Education/Training Program; Visit Provider Student in an Organized Health Care Education/Training Program
DX: K92.2 Gastrointestinal hemorrhage, unspecified (principal)
CPT/HCPCS: 36415; 85025

== ENCOUNTER 2024-02-01 06:51 | Day surgery (SDC) | payer SELFPAY ==
[2024-02-01] VITALS (10 sets, daily range): BP systolic 73–137; BP diastolic 41–85; PULSE 52–67; RESP 14–16; TEMP 36.1–36.6; O2SAT 94–100; BMI 25.0
[2024-02-01] MEDS: Lactated Ringers 1,000 ML 15 ML IV ×2 (07:29→08:38)
--- NOTE | 2024-02-01 07:40 | PCM.PRE.AN2 ---
ASA Classification* ASA Classification ASA Classification: 3 Assessment & Plan Anesthesia* Anesthesia Assessment Anesthesia Assessment: Discussed sedation and/or anesthesia options, risks, benefits, and alternatives with patient/parents/legal guardian/POA. Questions invited. The patient/parents/legal guardian/POA seems to understand and agrees to proceed with anesthesia plan. Reviewed the physical assessment, medical history, allergy history and patient home medications list prior to surgery/procedure/anesthetic and documented any changes. Performed airway and anesthesia risk assessments. Anesthesia Type Anesthesia Type: MAC Anesthesia Focused Assessment* Temperature: 97 F Pulse Rate: 52 Blood Pressure: 137/85 Respiratory Rate: 16 Pulse Ox: 100 Airway Assessment Mouth opens: >3 cm Mallampati Score: II Focused Labs Anesthesia Preop lab: CBC WBC 4.8 K/mm3 (4.4-11.0) 11/23/23 11:03 RBC 4.92 M/mm3 (4.6-6.2) 11/23/23 11:03 Hgb 13.6 g/dL (13.0-16.5) 11/23/23 11:03 Hct 40.9 % (40-54) 11/23/23 11:03 Plt Count 251 K/mm3 (150-450) 11/23/23 11:03 CHEMISTRY Potassium 3.5 mmol/L (3.5-5.1) 10/07/23 05:32 Sodium 138 mmol/L (136-145) 10/07/23 05:32 Magnesium 2.4 mg/dL (1.6-2.6) 10/06/23 03:20 Phosphorus 3.3 mg/dL (2.5-4.9) 10/06/23 03:20 BUN 18 mg/dL (7-18) 10/07/23 05:32 Creatinine 1.04 mg/dL (0.70-1.30) 10/07/23 05:32 Glucose 111 mg/dL (74-106) H 10/07/23 05:32 TSH 2.32 uIU/mL (0.358-3.74) 10/06/23 03:20 COAG PT 13.7 SECONDS (11.7-14.9) 10/05/23 05:30 Pre-Assessment Diagnosis/Proposed Procedure Planned Operative Procedure(s): EGD Anesthesia History 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 When Was Last Pacemaker Check QUESTION #4 FULL TEXT: You/Your Family Experience fever (hyperthermia) with Anesthesia Last Oral Intake Last Oral intake: Last Oral Intake NPO since 04:00 02/01/24 07:17 Meds taken in AM with sips of Yes 02/01/24 07:17 water? Meds patient instructed to take am of surgery PONV PONV - yarn carrier: PONV - yarn carrier Female No 01/26/24 13:52 HX of Motion Sickness No 01/26/24 13:52 HX of N/V After Surgery No 01/26/24 13:52 Non-Smoker Yes 01/26/24 13:52 Duration of Surgery greater No 01/26/24 13:52 than 60 minutes Number of Risk Factors 1 01/26/24 13:52 PONV Score Low Risk 01/26/24 13:52 Height & Weight Height & Weight: Anesthesia: Height & Weight Height 5 ft 9 in 02/01/24 07:17 Weight: 77 kg 02/01/24 07:17 Body Mass Index (BMI) 25.0 02/01/24 07:17 Respiratory Assessment Respiratory Assessment - yarn carrier: Respiratory Tract Infection Hx - yarn carrier Hx Respiratory Tract Infection No 01/26/24 13:52 STOP Sleep Apnea STOP Sleep Apnea - yarn carrier: STOP Sleep Apnea - yarn carrier Hx Hypertension No 01/26/24 13:52 Hx Sleep Apnea No 01/26/24 13:52 CPAP BIPAP Do you snore loudly (louder No 01/26/24 13:52 than talking or can be heard Do you often feel tired/ No 01/26/24 13:52 fatigued/ sleepy during daytime? Has anyone observed you stop No 01/26/24 13:52 breathing during sleep? STOP Results Negative 01/26/24 13:52 QUESTION #5 FULL TEXT : Do you snore loudly (louder than talking or can be heard through closed doors)? Tobacco Use History Tobacco Use History - yarn carrier: Tobacco Use History - yarn carrier Tobacco Use Smoking Status Never smoker 01/26/24 13:52 Hx Tobacco Use No 01/26/24 13:52 Years Smoking Packs Smoked per Day Smoking Cessation Date was within the last 15 years Hx Smoking Cessation Date Hx Smoking Cessation Counseling Hematologic Medial History Hematologic Hx - yarn carrier: Hematologic Medical Hx - high lead yarder Hx of Blood Transfusion No 01/26/24 13:52 Hx of Transfusion in last 3 No 01/26/24 13:52 Months Date of Last Transfusion (if within last 3 months) Ever experience any problems No 01/26/24 13:52 with transfusion(s)? Specify any problems Hx of Preganancy in last 3 N/A 01/26/24 13:52 Months Nurse Filling Out Transfusion VCHRISTIN 01/26/24 13:52 & Questions: Date: 01/26/24 01/26/24 13:52 Time: 13:53 01/26/24 13:52 Patient unable to answer at this time (ie. confused, unrespo /Reproduction History /Reproductive History - yarn carrier: /Reproductive Hx- yarn carrier Hx Now Gestational Age (in weeks): EDC: Hx Hx Para Hx Section SAB Active Medications Active Medications: Current Medications Generic Name Dose Route Start Last Admin Trade Name Freq PRN Reason Stop Dose Admin Lactated Ringer's 1,000 mls @ 15 mls/hr 02/01/24 07:00 02/01/24 07:29 IV 15 mls/hr .Q48H JUANPABLO Administration PFSH Medical History Wears dentures Thyroid disease Gastric reflux Non-smoker Holly's disease Hiatal hernia Anemia History of developmental delay Developmental disability Constipation Right inguinal hernia Home Medications ?Medication ?Instructions ?Recorded ?Last Taken ?Type thyroid (pork) 60 mg tablet 60 mg PO DAILY 10/01/23 02/01/24 07:15 History ([place] Thyroid) pantoprazole 40 mg tablet,delayed 40 mg PO BID 90 days #180 tabs 11/23/23 Unknown Rx release polyethylene glycol 3350 17 17 g PO BID PRN constipation 01/26/24 Unknown History gram/dose oral powder (Miralax) Allergy/AdvReac Type Severity Reaction Status Date / Time No Known Allergies Allergy Verified 02/01/24 07:15 Family History Grandmother Asthma Grandfather Colon cancer Brother Diabetes Father Hypertension Sister Thyroid disorder lupusautoimmune disease Surgical History History of esophagogastroduodenoscopy (EGD) Social History Smoking Status: Never smoker alcohol intake: never substance use type: does not use Review of Systems (Anesthesia) ROS Narrative System reviewed and no additional complaints, except as documented.
--- NOTE | 2024-02-01 08:00 | EGD_PTH ---
PATIENT: SIMON SHELTON LOC: [facility] U#:[id number] AGE/SX: 53/M ROOM: RE02/01/[address]: Dr. Trevin Gonzalez DO : 1970 BED: DIS: 02/01/2024 SPEC #: [id number] RECD: 02/01/24 10:36 STATUS: ANDRÉS JF #: [id number] MARIA ELENA: 02/01/24 08:[address]: Trevin Gonzalez DEPT: SURGICAL PATHOLOGY RECD BY: Merissa Eng ENTERED: 02/01/24 12:24 SP TYPE: EGD BIOPSY OT DR: Dr. Олег Wen DO Tissues: A - Esophagus, NOS B - Duodenum, NOS Procedures: Special Stain Group I Surgery Specimen Level IV Alcian Blue/PAS (control) HEADER OPERATION: EGD PRE-OP DIAGNOSIS: GI bleed TISSUE SUBMITTED: A- Distal esophagus biopsy, B- Duodenum biopsy MICROSCOPIC DIAGNOSIS A. Distal esophagus, biopsy: Gastroesophageal junctional mucosa with mild chronic inflammation. Focal changes of reflux. No evidence of goblet cell metaplasia. See comment. B. Duodenum, biopsy: Focal gastric metaplasia. Consistent with Chelsea's gland hyperplasia. Minimal chronic inflammation, non-specific. AM. 02/02/2024 COMMENT A. Alcian blue/PAS stain with matched control is used in the evaluation of the specimen. MICROSCOPIC DESCRIPTION Slides are reviewed. GROSS DESCRIPTION A. Received in fixative is one container labeled with the patient's name and designated Distal esophagus biopsy. The specimen consists of multiple irregular fragments of light mckinnon soft tissue that in aggregate measure 0.8 x 0.3 x 0.1 cm. The specimen is totally submitted in one cassette. B. Received in fixative is one container labeled with the patient's name and designated Duodenum biopsy. The specimen consists of multiple irregular fragments of light mckinnon soft tissue that in aggregate measure 0.6 x 0.3 x 0.1 cm. The specimen is totally submitted in one cassette. DANIEL. 02/01/2024 TC:3 CPT:[id number]
--- NOTE | 2024-02-01 08:04 | PCM.HP.BLA ---
History and Physical Date of Admission: 02/01/24 Chief Complaint: possible right inguinal hernia Details: SIMON SHELTON, is a 53 M who presents to the office today for hospital f/u for GI bleed. Pt was admitted 10/05/23-10/08/23 with GI bleed, pneumonia, pyelonephritis, COVID19 and LORRI. He underwent EGD with Dr. Gonzalez during his stay (09/27/23), which showed LA Grade D erosive esophagitis with bleeding. Biopsied. Treated with a heater probe. Large hiatal hernia. No gross lesions in the duodenal bulb. CT abdomen from 10/03/23, showed Large amount stool in the colon, including the rectum which is dilated up to 8.6 cm. On discharge (10/08/23), hemoglobin was stable at 11.1 and he was having no signs of further bleeding. OV today (11/23/23) patient has no concerns. History is taken from family as patient is non-verbal. Family feels as though he is feeling better although it is hard to tell for sure. Family denies melena, hematemesis, constipation or diarrhea. He is having a bowel movement everyday. He continues to take pantoprazole BID. He does not take blood thinners. ROS Const Constitutional: No anorexia, fatigue, fever(s), weight change or sleep problems Eyes Eyes: No change in vision ENT ENT: No abnormal hearing, difficulty swallowing, tongue swelling or throat swelling Resp Respiratory: No cough or shortness of breath Cardio Cardiology: No chest pain at rest, chest pain with exertion, shortness of breath or dyspnea on exertion Gastro GI: No abdominal pain, belching, bloating, change in bowel habits, change in stool character, coffee ground emesis, constipation, cramping, diarrhea, heartburn, difficulty swallowing, feeling full early, excessive flatus, incontinent of stools, Vomiting blood/hematemesis, Blood in stool, loose stools, Black,tarry stools, nausea/dyspepsia, pain with swallowing, vomiting or other Genitourinary Male: No difficulty urinating or burning urination Musc Musculoskeletal: No joint pain, joint swelling, muscle weakness or decreased muscle mass Skin Skin: No hair loss in leg, yellowing of the eye, itchy eyes, rash, skin ulcer or skin swelling Neuro Neurology: No abnormal hearing, abnormal movements, confusion, unsteady gait/balance or memory loss Psych Psychiatric: No anxiety, No confusion and No memory loss Endo Endocrine: No fatigue or weight change Aller/Imm Allergy/Immunologic: No itchy eyes, throat swelling or tongue swelling [place]/Lymp Hematologic/Lymphatic: No easy bleeding, easy bruising or enlarged lymph nodes Exam Const General: cooperative Nutritional Appearance: average body habitus and well nourished Orientation: alert HENMT Head: normal to inspection and atraumatic Ears: external ears normal Nose: external nose normal Face and sinus: normal facial exam Mouth: oral mucosae normal Throat: posterior oropharynx normal Eyes General: appearance normal, both eyes and all related structures Neck Neck: normal visual inspection Chest Chest palpation & inspection: normal inspection of the chest Resp Effort & Inspection: normal respiratory effort Auscultation: Bilateral: Clear to Auscultation Cardio Palpation: normal PMI Rate: regular rate Rhythm: regular rhythm GI Inspection: normal to inspection Auscultation: normal bowel sounds Percussion: normal to percussion Palpation: no hepatosplenomegaly Skin General: no rashes or lesions noted Neuro General: patient alert Extrem General: normal to inspection Psych Affect: normal affect Assessment and Plan Assessment and Plan (1) GI bleed: Status: Acute Orders: Orders CBC W/Diff, Automated Today K92.2 - Gastrointestinal hemorrhage, unspecified Medications: Refilled pantoprazole 40 mg PO BID 90 days 180 tabs 1RF Plan -During hospitalization in September 2023 patient was found to have LA grade D erosive esophagitis with bleeding which was treated with heater probe. Biopsy from EGD showed focal acute inflammation. He has not had any signs of further bleeding since hospitalization. Last hemoglobin 10/08/23 was stable at 11.1 -Patient will continue taking pantoprazole 40 mg BID -He will have EGD in 2-3 months to reassess esophagitis -CBC ordered to monitor hemoglobin for any further GI bleeding -Explained to patient biopsy results from EGD on 10/07/23 which showed some inflammation I have examined the patient and the H&P has been reviewed. There are no clinical changes since date of exam.
--- NOTE | 2024-02-01 08:31 | OP.EGD_ITS ---
Patient Name: Lewis Navas Procedure Date: 02/01/2024 8:04 AM Date of : 1970 Age: 53 Procedure: Upper GI endoscopy Indications: Heartburn, Esophageal reflux Providers: Trevin Gonzalez DO Medicines: Monitored Anesthesia Care Patient Profile: This is a 53 year old male. Refer to note in patient chart for documentation of history and physical. Patient has symptoms of chronic heartburn. Complications: No immediate complications. Procedure: Pre-Anesthesia Assessment: - Prior to the procedure, a History and Physical was performed, and patient medications and allergies were reviewed. The patient is competent. The risks and benefits of the procedure and the sedation options and risks were discussed with the patient. All questions were answered and informed consent was obtained. Patient identification and proposed procedure were verified by the physician in the pre-procedure area. Mental Status Examination: alert and oriented. Airway Examination: normal oropharyngeal airway and neck mobility. Respiratory Examination: clear to auscultation. CV Examination: normal. Prophylactic Antibiotics: The patient does not require prophylactic antibiotics. Prior Anticoagulants: The patient has taken no anticoagulant or antiplatelet agents except for NSAID medication. ASA Grade Assessment: II - A patient with mild systemic disease. After reviewing the risks and benefits, the patient was deemed in satisfactory condition to undergo the procedure. The anesthesia plan was to use monitored anesthesia care (MAC). Immediately prior to administration of medications, the patient was re-assessed for adequacy to receive sedatives. The heart rate, respiratory rate, oxygen saturations, blood pressure, adequacy of pulmonary ventilation, and response to care were monitored throughout the procedure. The physical status of the patient was re-assessed after the procedure. After obtaining informed consent, the endoscope was passed under direct vision. Throughout the procedure, the patient's blood pressure, pulse, and oxygen saturations were monitored continuously. The Endoscope was introduced through the mouth, and advanced to the second part of duodenum. The upper GI endoscopy was accomplished without difficulty. The patient tolerated the procedure well. Scope In: 8:17:02 AM Scope Out: 8:21:51 AM Total Procedure Duration Time 0 hours 4 minutes 49 seconds Findings: The examined esophagus was normal. The Z-line was irregular and was found 40 cm from the incisors. Biopsies were taken with a cold forceps for histology. Verification of patient identification for the specimen was done. Estimated blood loss was minimal. A small hiatal hernia was present. No gross lesions were noted in the entire examined stomach. Patchy mildly erythematous mucosa without active bleeding and with no stigmata of bleeding was found in the duodenal bulb. Biopsies were taken with a cold forceps for histology. Verification of patient identification for the specimen was done. Estimated blood loss was minimal. Impression: - Normal esophagus. - Z-line irregular, 40 cm from the incisors. Biopsied. - Small hiatal hernia. - No gross lesions in the entire stomach. - Erythematous duodenopathy. Biopsied. Recommendation: - Discharge patient to home. - Resume previous diet. - Continue present medications. Procedure Code(s): --- Professional --- 42751, Esophagogastroduodenoscopy, flexible, transoral; with biopsy, single or multiple CPT copyright 2021 [employer]. All rights reserved. The codes documented in this report are preliminary and upon certified coder review may be revised to meet current compliance requirements. Trevin Gonzalez DO 02/01/2024 8:30:37 AM This report has been signed electronically. Number of Addenda: 0 Note Initiated On: 02/01/2024 8:04 AM
--- NOTE | 2024-02-01 08:31 | OP.CCLET_ITS ---
02/01/2024 Олег Wen [address] [facility] [place] [address] Re : Upper GI endoscopy procedure for Lewis Reddecopp Dear Dr. Wen This procedure was performed on Thursday, February 01, 2024. My impressions and recommendations are as follows: Impressions : - Normal esophagus. - Z-line irregular, 40 cm from the incisors. Biopsied. - Small hiatal hernia. - No gross lesions in the entire stomach. - Erythematous duodenopathy. Biopsied. Recommendations : - Discharge patient to home. - Resume previous diet. - Continue present medications. My findings are described in the full procedure note, which is enclosed. If I can be of further assistance, please feel free to contact me at . Sincerely, Trevin Gonzalez, 02/01/2024 8:30:37 AM This report has been signed electronically.
--- NOTE | 2024-02-01 08:31 | PCM.POST.ANE ---
Anesthesia: Postop Eval I Current Vital Signs Temperature: 97.8 F Pulse Rate: 60 Blood Pressure: 73/41 Respiratory Rate: 14 Pulse Ox: 95 Oxygen Delivery Method: Room Air Assessment Airway patent: Yes Spontaneous unlabored respirations: Yes Mental status: Asleep nausea: No Vomiting: No Anesthesia Complication: No Fluid Hydration Crystalloid volume administer (ml): 900 Total IV fluid infused: 900 Progress Note Anesthesia document: Postop Eval 1 completed: Yes
--- NOTE | 2024-02-01 08:57 | PCM.POSTANE2 ---
Anesthesia Postop Eval I Sum Postop Eval Completion status Anesthesia document: Postop Eval 1 completed: Yes Anesthesia Postop Eval I Summary Anesthesia Postop Eval I Summary: Anesthesia Postop Eval I: Assessment Summary Airway patent Yes 02/01/24 08:32 [email or web address] Spontaneous unlabored Yes 02/01/24 08:32 [email or web address] respirations Mental status Asleep 02/01/24 08:32 [email or web address] nausea No 02/01/24 08:32 [email or web address] Vomiting No 02/01/24 08:32 [email or web address] Anesthesia Postop Eval I: Fluid Summary Crystalloid volume administer 900 02/01/24 08:32 [email or web address] (ml) Colloids volume administered ( ml) Blood Product volume administered (ml) Total IV fluid infused 900 02/01/24 08:32 [email or web address] Anesthesia Postop Eval I: Summary Notes Anesthesia Complication No 02/01/24 08:32 [email or web address] Anesthesia Complication Comment: Post-operative progress note Anesthesia: Postop Eval II Evaluation Mental status: Awake Pain Level: 0 nausea: No Vomiting: No
== END 2024-02-01 09:17 | disposition home or self-care (01) ==
PROVIDERS: PCP Family Medicine; Referring Provider Family Medicine; Visit Provider Internal Medicine Gastroenterology
PROC: 0DJ08ZZ Inspection of Upper Intestinal Tract, Via Natural or Artificial Opening Endoscopic (ICD-10-PCS; CPT 43235; principal; 2024-02-01 07:55)
DX: K21.00 Gastro-esophageal reflux disease with esophagitis, without bleeding (principal); K44.9 Diaphragmatic hernia without obstruction or gangrene; K31.89 Other diseases of stomach and duodenum; E06.3 Autoimmune thyroiditis; Z79.890 Hormone replacement therapy; Z79.899 Other long term (current) drug therapy; Z86.16 Personal history of COVID-19; Z87.19 Personal history of other diseases of the digestive system
CPT/HCPCS: 43239; 88305; 88312; J7120; J2405